=== PATIENT | male | born 1950 | race American Indian/Alaskan Native ===

== ENCOUNTER 2022-03-12 05:27 | Inpatient (IN) | payer MEDICARE ==
[2022-03-12] MEDS ORDERED: MORPHINE 4 MG/1 ML INJ IV ONE (06:12)
[2022-03-12] MEDS ORDERED: ONDANSETRON 4 MG/2 ML INJ IV ONE (06:12)
--- NOTE | 2022-03-12 06:19 | Emergency Department Report ---
ED General Adult HPI - General Stated complaint: LOW BLOOD CELL COUNT Time Seen by Provider: 03/12/22 06:04 - History of Present Illness Initial comments: Patient is a 71-year-old male with history of stage IV cancer (he is unaware of primary source) brought in from [facility] after lab results revealed platelet count of 8. Patient denies any active bleeding however notes painful sacral decubitus ulcer which he thinks may be infected. He denies any fever or chills. States he is on chemotherapy. Last chemo treatment was 4 weeks ago at [place]. - Related Data Allergies Allergy/AdvReac Type Severity Reaction Status Date / Time atorvastatin [From Lipitor] Allergy Unknown Verified 03/12/22 06:46 ED Review of Systems ROS: Stated complaint: LOW BLOOD CELL COUNT Other details as noted in HPI Constitutional: denies: chills, fever Respiratory: denies: cough, shortness of breath, wheezing Cardiovascular: denies: chest pain, palpitations Gastrointestinal: denies: abdominal pain, nausea, diarrhea Genitourinary: denies: urgency, dysuria Musculoskeletal: denies: back pain, joint swelling, arthralgia Skin: lesions Neurological: denies: headache, weakness, paresthesias Psychiatric: denies: anxiety, depression ED Physical Exam - General General appearance: alert, in no apparent distress - Head Head exam: Present: atraumatic, normocephalic - Respiratory Respiratory exam: Present: normal lung sounds bilaterally. Absent: respiratory distress - Cardiovascular Cardiovascular Exam: Present: normal rhythm, tachycardia, normal heart sounds - GI/Abdominal GI/Abdominal exam: Present: soft. Absent: distended, tenderness - Rectal Rectal exam: Present: other (Caked stool in diaper. There is a quarter sized stage I decubitus ulcer to the sacral region). Absent: black stool, bloody stool - Neurological Exam Neurological exam: Present: alert, oriented X3 - Psychiatric Psychiatric exam: Present: normal affect, normal mood - Skin Skin exam: Present: warm, dry, intact, normal color ED Course Vital Signs 03/12/22 03/12/22 03/12/22 06:32 08:57 10:09 Temperature 97 F L 97.6 F Pulse Rate 94 H 88 104 H Respiratory 18 18 21 Rate Blood Pressure 111/51 127/80 Blood Pressure 118/80 [Left] O2 Sat by Pulse 100 100 100 Oximetry 03/12/22 10:24 Temperature Pulse Rate 94 H Respiratory 18 Rate Blood Pressure 115/85 Blood Pressure [Left] O2 Sat by Pulse 100 Oximetry ED Medical Decision Making - Lab Data Result diagrams: 03/12/22 06:46 03/12/22 06:46 - Medical Decision Making Hemoglobin 5.5, platelet count 7. I suspect this is likely related to his chemotherapy. 3 units of packed red cells ordered. Serum potassium 5.6. Patient was given oral Kayexalate along with IV dextrose and insulin. He was also given 2 g of IV calcium gluconate for serum calcium of 7.8. Hemoccult pending. Will admit to hospitalist for further management. Critical care attestation.: If time is entered above; I have spent that time in minutes in the direct care of this critically ill patient, excluding procedure time. ED Disposition Clinical Impression: Anemia associated with chemotherapy, Hyperkalemia, Hypocalcemia Disposition: 09 ADMITTED INPATIENT Is pt being admited?: Yes Condition: Stable
[2022-03-12 07:26] LABS: Mean Corpuscular HGB Conc 33 % (32-34); Mean Corpuscular Volume 92 fl (84-94); Red Blood Count 1.83 M/mm3 (3.65-5.03)
[2022-03-12 07:49] LABS: Alanine Aminotransferase 19 units/L (7-56); Albumin 2.5 g/dL (3.9-5); BUN/Creatinine Ratio 58; Bilirubin,Direct 0.4 mg/dL (0-0.2); Blood Urea Nitrogen 64 mg/dL (9-20); Calcium 7.8 mg/dL (8.4-10.2); Hemolysis Index 3
[2022-03-12 07:54] LABS: Hemoglobin 5.5 gm/dl (11.8-15.2)
[2022-03-12 07:55] LABS: Hematocrit 16.8 % (35.5-45.6); Red Cell Distribution Width 26.8 % (13.2-15.2)
[2022-03-12] MEDS ORDERED: DEXTROSE 50% IN WATER (25GM) 50 ML SYRINGE IV ONE (07:55)
[2022-03-12] MEDS ORDERED: INSULIN REGULAR, HUMAN 100 UNITS/1 ML IV ONE (07:55)
[2022-03-12] MEDS ORDERED: SODIUM POLYSTYRENE 15 GM/60 ML ORAL LIQD PO ONE (07:55)
[2022-03-12 07:56] LABS: Platelet Count 7 K/mm3 (140-440)
[2022-03-12] MEDS ORDERED: SODIUM CHLORIDE 0.9% 500 ML 500 ML IV ONE (08:04)
[2022-03-12] MEDS ORDERED: CALCIUM GLUCONATE 2,000 MG in SODIUM CHLORIDE 0.9% 100 ML IV NR (08:30)
[2022-03-12] MEDS ORDERED: DEXTROSE 50% IN WATER (25GM) 50 ML SYRINGE IV SCH (09:00)
[2022-03-12] MEDS: CALC GLUCONATE 1GM/NS 100 ML 1 GM/100 ML BAG IV SCH (09:09)
[2022-03-12 09:18] LABS: INR 1.21 (0.87-1.13)
[2022-03-12 10:25] LABS: Anisocytosis 1+; Band Neutrophils # (Manual) 0.2 K/mm3; Basophils % (Manual) 0 % (0.0-1.8); Eosinophils % (Manual) 0 % (0.0-4.3); Myelocytes # (Manual) 0.5 K/mm3; Ovalocytes 1+; Total Cells Counted 100
[2022-03-12 10:26] LABS: Hypochromasia 1+; Platelet Estimate Consistent w Auto; Schistocytes Rare
[2022-03-12] MEDS ORDERED: ALBUTEROL 2.5 MG/3 ML NEBU IH PRN (12:22)
[2022-03-12] MEDS ORDERED: oxyCODONE /ACETAMINOPHEN 5-325MG TAB PO PRN (12:22)
[2022-03-12] MEDS ORDERED: ACETAMINOPHEN 325 MG TAB PO PRN ×2 (12:22)
[2022-03-12] MEDS ORDERED: MORPHINE 4 MG/1 ML INJ IV PRN (12:22)
[2022-03-12] MEDS ORDERED: SODIUM CHLORIDE 0.9% 500 ML 500 ML IV SCH (12:26)
--- NOTE | 2022-03-12 12:28 | History and Physical Report ---
History of Present Illness Chief complaint: Low platelets. 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 Patient has diminished cognition and provides minimal history. Patient reports my backside is hurting". Additional history taken from EMS staff, ED staff, as well as nursing home facility staff. As per staff the patient was recently discharged to their facility from [facility] and routine lab work found that the patient had a platelet count of 8. EMS was notified and the patient was simply transported to [facility] for further care and evaluation of the aforementioned symptoms. The patient was seen and evaluated in the emergency department. All lab and imaging studies reviewed. Patient found to have sepsis suspected secondary to urinary tract infection with concomitant infection of sacral decubitus ulcer, thrombocytopenia, malnutrition, debility, and volume depletion. Patient admitted to [facility] and initiated on sepsis protocol. Patient treated with packed red blood cell transfusion as well as platelet transfusion. No additional history obtainable. No prior admission for review. No medication listed at time of admission for reconciliation. Advanced care planning conducted in ED. Past History Past Medical History: cancer, other (See HPI) Past Surgical History: No surgical history, Other (Reviewed) Social history: single. denies: smoking, alcohol abuse Family history: hypertension Medications and Allergies Allergies Allergy/AdvReac Type Severity Reaction Status Date / Time atorvastatin [From Lipitor] Allergy Unknown Verified 03/12/22 06:46 Active Meds: Active Medications Acetaminophen (Acetaminophen 325 Mg Tab) 650 mg PO Q6H PRN PRN Reason: Pain, Mild (1-3) Acetaminophen (Acetaminophen 325 Mg Tab) 650 mg PO Q6H PRN PRN Reason: Pain MILD(1-3)/Fever >100.5/BROOKE Albuterol (Albuterol 2.5 Mg/3 Ml Nebu) 2.5 mg IH Q3HRT PRN PRN Reason: Shortness Of Breath Hydromorphone HCl (Hydromorphone 0.5 Mg/0.5 Ml Inj) 0.25 mg IV Q4H PRN PRN Reason: Pain, Moderate (4-6) CALC GLUCONATE 1GM/NS 100 ML (Calcium Gluonate/Ns 1,000mg/100ml) 1 gm in 100 mls @ 300 mls/hr IV ONCE@0900 RJ Stop: 03/13/22 09:19 Last Admin: 03/12/22 09:09 Dose: 300 mls/hr Ceftriaxone Sodium (Rocephin/Ns 1 Gm/50 Ml) 1 gm in 50 mls @ 100 mls/hr IV Q24H RJ; Protocol Stop: 03/14/22 13:29 Morphine Sulfate (Morphine 4 Mg/1 Ml Inj) 2 mg IV Q8H PRN PRN Reason: Pain , Severe (7-10) Oxycodone/Acetaminophen (Oxycodone /Acetaminophen 5-325mg Tab) 1 tab PO Q6H PRN PRN Reason: Pain, Moderate (4-6) Sodium Chloride (Sodium Chloride 0.9% 10 Ml Flush Syringe) 10 ml IV BID RJ Sodium Chloride (Sodium Chloride 0.9% 10 Ml Flush Syringe) 10 ml IV PRN PRN PRN Reason: LINE FLUSH Sodium Chloride (Sodium Chloride 0.9% 1000 Ml Iv Soln) 1,500 ml 30 ml/kg (1500 ml) IV ONCE ONE Stop: 03/12/22 12:23 Review of Systems ROS unobtainable: due to mental status Exam - Constitutional Vitals: Temp Pulse Resp BP Pulse Ox 98.2 F 75 18 123/79 100 03/12/22 11:56 03/12/22 11:56 03/12/22 11:56 03/12/22 11:56 03/12/22 11:56 General appearance: Present: mild distress, cachectic - EENT Eyes: Present: PERRL ENT: hearing intact, clear oral mucosa - Neck Neck: Present: supple, normal ROM - Respiratory Respiratory effort: normal Respiratory: bilateral: diminished - Cardiovascular Heart Sounds: Present: S1 & S2. Absent: rub, click - Extremities Extremities: pulses symmetrical, No edema Peripheral Pulses: abnormal (Capillary refill greater than 3.5 seconds) - Abdominal General gastrointestinal: Present: soft, non-tender, non-distended, normal bowel sounds Male genitourinary: Present: normal - Integumentary Integumentary: Present: dry, clammy, decreased turgor - Musculoskeletal Musculoskeletal: generalized weakness - Psychiatric Psychiatric: no intact judgment & insight, no memory intact, cooperative - Neurologic Neurologic: CNII-XII intact, no focal deficits, moves all extremities, no gait normal Results - Labs CBC & Chem 7: 03/12/22 06:46 03/12/22 06:46 Labs: Abnormal lab results 03/12/22 03/12/22 03/12/22 Range/Units 06:46 06:46 08:20 WBC 18.0 H (4.5-11.0) K/mm3 RBC 1.83 L (3.65-5.03) M/mm3 Hgb 5.5 L* (11.8-15.2) gm/dl Hct 16.8 L* (35.5-45.6) % RDW 26.8 H (13.2-15.2) % Plt Count 7 L* (140-440) K/mm3 Seg Neuts % (Manual) 85.0 H (40.0-70.0) % Lymphocytes % (Manual) 2.0 L (13.4-35.0) % Nucleated RBC % 8.0 H (0.0-0.9) % Seg Neutrophils # Man 15.3 H (1.8-7.7) K/mm3 Lymphocytes # (Manual) 0.4 L (1.2-5.4) K/mm3 Monocytes # (Manual) 1.3 H (0.0-0.8) K/mm3 PT 17.1 H (12.2-14.9) Sec. INR 1.21 H (0.87-1.13) Potassium 5.6 H (3.6-5.0) mmol/L BUN 64 H (9-20) mg/dL Glucose 127 H (75-100) mg/dL Calcium 7.8 L (8.4-10.2) mg/dL Direct Bilirubin 0.4 H (0-0.2) mg/dL AST 63 H (5-40) units/L Alkaline Phosphatase 311 H (35-129) units/L Total Protein 4.9 L (6.3-8.2) g/dL Albumin 2.5 L (3.9-5) g/dL Crossmatch 03/12/22 Range/Units 08:21 WBC (4.5-11.0) K/mm3 RBC (3.65-5.03) M/mm3 Hgb (11.8-15.2) gm/dl Hct (35.5-45.6) % RDW (13.2-15.2) % Plt Count (140-440) K/mm3 Seg Neuts % (Manual) (40.0-70.0) % Lymphocytes % (Manual) (13.4-35.0) % Nucleated RBC % (0.0-0.9) % Seg Neutrophils # Man (1.8-7.7) K/mm3 Lymphocytes # (Manual) (1.2-5.4) K/mm3 Monocytes # (Manual) (0.0-0.8) K/mm3 PT (12.2-14.9) Sec. INR (0.87-1.13) Potassium (3.6-5.0) mmol/L BUN (9-20) mg/dL Glucose (75-100) mg/dL Calcium (8.4-10.2) mg/dL Direct Bilirubin (0-0.2) mg/dL AST (5-40) units/L Alkaline Phosphatase (35-129) units/L Total Protein (6.3-8.2) g/dL Albumin (3.9-5) g/dL Crossmatch See Detail Assessment and Plan - Patient Problems (1) Sepsis Current Visit: Yes Status: Acute Plan to address problem: Sepsis protocol: Chest x-ray, urinalysis, IV fluid resuscitation therapy, IV antibiotic therapy, blood culture, serial lactic acid level, maintain mean arterial pressure greater than equal to 65, monitor fluid balance, (2) Anemia associated with chemotherapy Current Visit: Yes Status: Acute Plan to address problem: Blood cell transfusion, CBC, repeat CBC in AM. Outpatient oncology follow-up. (3) Thrombocytopenia Current Visit: Yes Status: Acute Plan to address problem: Platelet transfusion, fall precautions, repeat CBC in AM. (4) Urinary tract infection Current Visit: Yes Status: Acute Qualifiers: Encounter type: initial encounter Plan to address problem: CBC, urinalysis, IV antibiotic therapy, repeat CBC in a.m. (5) Sacral decubitus ulcer Current Visit: Yes Status: Acute Plan to address problem: Wound care consulted, continue medical management. (6) Malnutrition Current Visit: Yes Status: Acute Qualifiers: Protein-calorie malnutrition severity: severe Plan to address problem: Increase protein intake, dietary supplementation. (7) Debility Current Visit: Yes Status: Acute (8) Vascular dementia Current Visit: Yes Status: Acute Qualifiers: Dementia behavioral disturbance: without behavioral disturbance Qualified Code(s): F01.50 - Vascular dementia without behavioral disturbance Plan to address problem: Verbal prompting, verbal redirection, benzodiazepine therapy as clinically indicated. (9) Cerebral atherosclerosis Current Visit: Yes Status: Acute Plan to address problem: Risk factor reduction, hold antiplatelet therapy at this time due to thrombocytopenia. (10) DVT prophylaxis Current Visit: Yes Status: Acute Plan to address problem: SCDs bilateral lower extremities while in bed (11) Advance care planning Current Visit: Yes Status: Acute Plan to address problem: Disease education conducted, care plan discussed, diagnosis discussed, prognosis discussed, nursing home facility staff acknowledged understanding agree with care plan, +30 minutes. (12) Preventative health care Current Visit: Yes Status: Acute Plan to address problem: Safety precautions discussed, patient to follow-up with primary care physician as well as oncology for age and risk factor appropriate and diagnosis appropriate screening test and surveillance test. +30 minutes.
[2022-03-12] MEDS ORDERED: SODIUM CHLORIDE 0.9% 1000 ML IV SOLN IV ONE (12:30)
[2022-03-12] MEDS: cefTRIAXone/NS 1 GM/50 ML 1 GM/50 ML BAG IV SCH (12:55)
--- NOTE | 2022-03-12 15:36 | XRay Report ---
CHEST 1 VIEW INDICATION: fever. COMPARISON: None FINDINGS: SUPPORT DEVICES: Right-sided Port-A-Cath with tip in the mid right atrium. HEART: Within normal limits. LUNGS/PLEURA: Large right-sided pleural effusion with underlying patchy airspace disease/atelectasis. Minimal left basilar streaky airspace disease/atelectasis is also present. ADDITIONAL FINDINGS: None. IMPRESSION: 1. Lung findings as above. Signer Name: Rocky Valentin MD Signed: 03/12/2022 3:31 PM Workstation Name: [id number]
[2022-03-13 00:52] LABS: Hematocrit 36.3 % (35.5-45.6); Hemoglobin 12.1 gm/dl (11.8-15.2); Mean Corpuscular HGB Conc 33 % (32-34); Mean Corpuscular Volume 91 fl (84-94); Red Cell Distribution Width 18.4 % (13.2-15.2)
[2022-03-13 00:59] LABS: Platelet Count 31 K/mm3 (140-440)
[2022-03-13 08:29] LABS: Hematocrit 34.6 % (35.5-45.6); Mean Corpuscular HGB Conc 35 % (32-34); Mean Corpuscular Volume 89 fl (84-94); Red Blood Count 3.87 M/mm3 (3.65-5.03); Red Cell Distribution Width 18.8 % (13.2-15.2)
[2022-03-13 08:42] LABS: Platelet Count 17 K/mm3 (140-440)
[2022-03-13 08:45] LABS: BUN/Creatinine Ratio 72; Blood Urea Nitrogen 72 mg/dL (9-20); Calcium 7.4 mg/dL (8.4-10.2); Hemolysis Index 1
[2022-03-13 09:52] LABS: Band Neutrophils # (Manual) 1.8 K/mm3; Basophils % (Manual) 0 % (0.0-1.8); Eosinophils % (Manual) 0 % (0.0-4.3); Total Cells Counted 100
[2022-03-13 09:53] LABS: Target Cells 1+
[2022-03-13] MEDS: CALC GLUCONATE 1GM/NS 100 ML 1 GM/100 ML BAG IV SCH (09:53)
[2022-03-13 09:54] LABS: Anisocytosis Few; Burr Cells Few; Platelet Estimate Consistent w Auto; Spherocytes Few
[2022-03-13] MEDS: cefTRIAXone/NS 1 GM/50 ML 1 GM/50 ML BAG IV SCH (12:18)
--- NOTE | 2022-03-13 12:48 | Progress Note ---
<WING PURVIS - Last Filed: 03/13/22 18:13> Assessment and Plan Assessment and plan: This is a 71-year-old male with known past medical history of stage 4 Lung CA s/p Chemo, vascular dementia, cerebral atherosclerosis, malnutrition, debility, sacral decubitus ulcer admitted for sepsis, anemia, and severe thrombocytopenia. Hospital Course to Date: 03/13: S/p 3units of PRBCs and 2units of plt. Platelets counts are still low this am, last unit of plt pending. Patient remains mentally intact, stable on 2L NC. No s/s of any active bleeding, stool occult negative. Hematology consulted for further recs. Patient is also hypotensive this am. Remains afebrile, however with worsen leukocytosis, UA and blood cultures pending. BP improved post IVF bolus and continuous IVF ordered. Will check a procal, continue current empiric IV Abx for now. Consider ID consult if leukocytosis worsen or if patient is febrile. Hypoglycemia also noted from this am labs, treated per hypoglycemic protocol. Encourage PO intake, BG check ACHS, sole painter/nutrition consulted. PT/OT also ordered. Records requested from [place]. Assessment and Plan #Sepsis #Probably UTI #Sacral Decubitus Ulcer(POA) - Resides at a nursing and per patient with multiple hospitalization since pt, 2020 - With worsen leukocytosis, now hypotensive with worsen lactic acidosis. Remains afebrile - UA, blood cultures, MRSA pending - Patient also presented with stage 2 sacral wound. Wound appears clean, no indication for any infection - Procal ordered - Continue current empiric IV Abx - Continue IVF hydration - Trend Lactic acid - F/U on cultures - Daily CBC monitor - Consider ID consult if febrile or/and if leukocytosis persists - Frquent repositioning and wound care per nursing staffs - Wound care also consulted #Normocytic Anemia #Thrombocytopenia - Presented with low H&H and low platelets - Probably due chemotherapy vs sepsis - Per patient last chemo treatment was a month ago at [place] and the dosage was too strong for him at the time. - s/p 3units of PRBCs and 2units of platelets - No s/s of any active bleeding - Stool occult negative - Plt still low this am, additional 1unit of plt ordered - Continue sepsis w/up and IV abx - Hematology consulted for further rec - Transfuse for Hgb less than 7 and plt less than 20 - Records requested from [place] #Hypotension - probably related to sepsis - BP improved post IVF bolus - Continue sepsis w/up and current empiric IV Abx - Continue rehydration with cont. IVF - Continue blood pressure monitor per protocol - Maintain MAP above 65 #Hypoglycemia - Low BG noted from this am labs - Probably due to poor PO intake - BG treated per [id number] protocol - Check BG ACHS - Avoid hypoglycemia - Continue hypoglycemic protocol #Stage 4 Lung Cancer s/p Chemo - Per patient last chemo treatment was a month ago at [place] and the dosage was too strong for him at the time. - Currently stable on 2L NC - Continue O2 supplementation wean as tolerated - Continue SPO2 monitoring for SPO2 goal above 92% - Follow up outpatient with Oncology for further management #Moderate Protein-Calorie Malnutrition - Encourage PO intake - Increase protein intake, dietary supplementation. - Tongue And Groove Machine Setter/Nutrition consulted #Vascular Dementia #Debility - Mentation improved, fully AAO today - Verbal prompting, verbal redirection - Avoid benzodiazepine to reduce the possibility of delirium - PRN Analgesia for pain control - Maintenance of sleep-wake cycle - PT/OT consulted #GI/DVT Prophylaxis - PPI- Pepcid - SCDs bilateral lower extremities while in bed #Advance Care Planning - Disease education data, care plan, diagnoses, and prognosis were discussed with patient at the bedside. Patient is a FULL code. Patient acknowledged understanding and agreed with current care plan. The high probability of a clinically significant, sudden or life threatening deterioration of the [multiple] system(s) required my full and direct attention, intervention and personal management. The aggregate critical care time was [60] minutes. This time is in addition to time spent performing reported procedures but includes the following: [x] Data Review and interpretation [x] Patient assessment and monitoring of vital signs [x] Documentation [x] Medication orders and management Disposition Plan: IMCU Total Time Spent with Patient (Minutes): 60 History Interval history: Patient seen and examined at the bedside. Fully AAO, on 2L NC, c/o generalized weakness but no pain nor any discomfort. SR on the monitor, afebrile, but hypotensive this am. No s/s of any active bleeding at this time. [place] overnight Hospitalist Physical - Constitutional Vitals: Temp Pulse Resp BP Pulse Ox 98.3 F 98 H 20 87/60 92 03/13/22 11:42 08/05/22 11:42 03/13/22 11:42 03/13/22 11:42 03/13/22 11:42 General appearance: Present: no acute distress, cachectic - EENT Eyes: Present: PERRL, EOM intact ENT: hearing intact - Neck Neck: Present: normal ROM - Respiratory Respiratory effort: normal Respiratory: bilateral: diminished - Cardiovascular Rhythm: regular Heart Sounds: Present: S1 & S2 - Extremities Extremities: no ischemia, pulses intact, pulses symmetrical Peripheral Pulses: within normal limits - Abdominal General gastrointestinal: soft, non-distended, normal bowel sounds - Integumentary Integumentary: Present: warm, dry - Psychiatric Psychiatric: appropriate mood/affect, cooperative - Neurologic Neurologic: CNII-XII intact, moves all extremities, other (Generalized weakness) - Allied Health Allied health notes reviewed: nursing, case management Results - Labs CBC & Chem 7: 03/13/22 08:14 03/13/22 08:14 Labs: Laboratory Last Values WBC 25.1 K/mm3 (4.5-11.0) H 03/13/22 08:14 RBC 3.87 M/mm3 (3.65-5.03) 03/13/22 08:14 Hgb 12.0 gm/dl (11.8-15.2) 03/13/22 08:14 Hct 34.6 % (35.5-45.6) L 03/13/22 08:14 MCV 89 fl (84-94) 03/13/22 08:14 MCH 31 pg (28-32) 03/13/22 08:14 MCHC 35 % (32-34) H 03/13/22 08:14 RDW 18.8 % (13.2-15.2) H 03/13/22 08:14 Plt Count 17 K/mm3 (140-440) L* 03/13/22 08:14 Add Manual Diff Complete 03/13/22 08:14 Total Counted 100 03/13/22 08:14 Seg Neuts % (Manual) 84.0 % (40.0-70.0) H 03/13/22 08:14 Band Neutrophils % 7.0 % 03/13/22 08:14 Lymphocytes % (Manual) 0 % (13.4-35.0) L 03/13/22 08:14 Reactive Lymphs % (Man) 0 % 03/13/22 08:14 Monocytes % (Manual) 6.0 % (0.0-7.3) 03/13/22 08:14 Eosinophils % (Manual) 0 % (0.0-4.3) 03/13/22 08:14 Basophils % (Manual) 0 % (0.0-1.8) 03/13/22 08:14 Metamyelocytes % 3.0 % 03/13/22 08:14 Myelocytes % 0 % 03/13/22 08:14 Promyelocytes % 0 % 03/13/22 08:14 Blast Cells % 0 % 03/13/22 08:14 Nucleated RBC % 8.0 % (0.0-0.9) H 03/13/22 08:14 Seg Neutrophils # Man 21.1 K/mm3 (1.8-7.7) H 03/13/22 08:14 Band Neutrophils # 1.8 K/mm3 03/13/22 08:14 Lymphocytes # (Manual) 0.0 K/mm3 (1.2-5.4) L 03/13/22 08:14 Abs React Lymphs (Man) 0.0 K/mm3 03/13/22 08:14 Monocytes # (Manual) 1.5 K/mm3 (0.0-0.8) H 03/13/22 08:14 Eosinophils # (Manual) 0.0 K/mm3 (0.0-0.4) 03/13/22 08:14 Basophils # (Manual) 0.0 K/mm3 (0.0-0.1) 03/13/22 08:14 Metamyelocytes # 0.8 K/mm3 03/13/22 08:14 Myelocytes # 0.0 K/mm3 03/13/22 08:14 Promyelocytes # 0.0 K/mm3 03/13/22 08:14 Blast Cells # 0.0 K/mm3 03/13/22 08:14 WBC Morphology Not Reportable 03/13/22 08:14 Hypersegmented Neuts Not Reportable 03/13/22 08:14 Hyposegmented Neuts Not Reportable 03/13/22 08:14 Hypogranular Neuts Not Reportable 03/13/22 08:14 Smudge Cells Not Reportable 03/13/22 08:14 Toxic Granulation Not Reportable 03/13/22 08:14 Toxic Vacuolation Not Reportable 03/13/22 08:14 Dohle Bodies Not Reportable 03/13/22 08:14 Pelger-Huet Anomaly Not Reportable 03/13/22 08:14 Blu Rods Not Reportable 03/13/22 08:14 Platelet Estimate Consistent w auto 03/13/22 08:14 Clumped Platelets Not Reportable 03/13/22 08:14 Plt Clumps, EDTA Not Reportable 03/13/22 08:14 Large Platelets Not Reportable 03/13/22 08:14 Giant Platelets Not Reportable 03/13/22 08:14 Platelet Satelliting Not Reportable 03/13/22 08:14 Plt Morphology Comment Not Reportable 03/13/22 08:14 RBC Morphology Not Reportable 03/13/22 08:14 Dimorphic RBCs Not Reportable 03/13/22 08:14 Polychromasia Few 03/13/22 08:14 Hypochromasia Not Reportable 03/13/22 08:14 Poikilocytosis Not Reportable 03/13/22 08:14 Anisocytosis Few 03/13/22 08:14 Microcytosis Not Reportable 03/13/22 08:14 Macrocytosis Not Reportable 03/13/22 08:14 Spherocytes Few 03/13/22 08:14 Pappenheimer Bodies Not Reportable 03/13/22 08:14 Sickle Cells Not Reportable 03/13/22 08:14 Target Cells 1+ 03/13/22 08:14 Tear Drop Cells Not Reportable 03/13/22 08:14 Ovalocytes Not Reportable 03/13/22 08:14 Helmet Cells Not Reportable 03/13/22 08:14 Holland-Pratt Bodies Not Reportable 03/13/22 08:14 [place] Rings Not Reportable 03/13/22 08:14 [place] Cells Few 03/13/22 08:14 Bite Cells Not Reportable 03/13/22 08:14 Crenated Cell Not Reportable 03/13/22 08:14 Elliptocytes 1+ 03/13/22 08:14 Acanthocytes (Spur) Not Reportable 03/13/22 08:14 Rouleaux Not Reportable 03/13/22 08:14 Hemoglobin C Crystals Not Reportable 03/13/22 08:14 Schistocytes Not Reportable 03/13/22 08:14 Malaria parasites Not Reportable 03/13/22 08:14 River Bodies Not Reportable 03/13/22 08:14 Hem Pathologist Commnt No 03/13/22 08:14 PT 17.1 Sec. (12.2-14.9) H 03/12/22 08:20 INR 1.21 (0.87-1.13) H 03/12/22 08:20 APTT 31.0 Sec. (24.2-36.6) 03/12/22 08:20 Sodium 139 mmol/L (137-145) 03/13/22 08:14 Potassium 4.7 mmol/L (3.6-5.0) 03/13/22 08:14 Chloride 106.1 mmol/L (98-107) 03/13/22 08:14 Carbon Dioxide 20 mmol/L (22-30) L 03/13/22 08:14 Anion Gap 18 mmol/L 03/13/22 08:14 BUN 72 mg/dL (9-20) H 03/13/22 08:14 Creatinine 1.0 mg/dL (0.8-1.3) 03/13/22 08:14 Estimated GFR > 60 ml/min 03/13/22 08:14 BUN/Creatinine Ratio 72 % 03/13/22 08:14 Glucose 61 mg/dL (75-100) L 03/13/22 08:14 Lactic Acid 2.10 mmol/L (0.7-2.0) H* 03/13/22 08:14 Calcium 7.4 mg/dL (8.4-10.2) L 03/13/22 08:14 Total Bilirubin 1.00 mg/dL (0.1-1.2) 03/12/22 06:46 Direct Bilirubin 0.4 mg/dL (0-0.2) H 03/12/22 06:46 Indirect Bilirubin 0.6 mg/dL 03/12/22 06:46 AST 63 units/L (5-40) H 03/12/22 06:46 ALT 19 units/L (7-56) 03/12/22 06:46 Alkaline Phosphatase 311 units/L (35-129) H 03/12/22 06:46 Total Protein 4.9 g/dL (6.3-8.2) L 03/12/22 06:46 Albumin 2.5 g/dL (3.9-5) L 03/12/22 06:46 Albumin/Globulin Ratio 1.0 % 03/12/22 06:46 Blood Type O POSITIVE 03/12/22 08:21 Antibody Screen Negative 03/12/22 08:21 Crossmatch See Detail 03/12/22 08:21 Ann/IV: Voiding Method Incontinent Active Medications - Current Medications Current Medications: Generic Name Dose Route Start Last Admin Trade Name Freq PRN Reason Stop Dose Admin Acetaminophen 650 mg 03/12/22 12:22 Acetaminophen 325 Mg Tab PO Q6H PRN Pain, Mild (1-3) Albuterol 2.5 mg 03/12/22 12:22 Albuterol 2.5 Mg/3 Ml Nebu IH Q3HRT PRN Shortness Of Breath Hydromorphone HCl 0.25 mg 03/12/22 12:22 Hydromorphone 0.5 Mg/0.5 Ml Inj IV Q4H PRN Pain, Moderate (4-6) Ceftriaxone Sodium 1 gm in 50 mls @ 100 mls/hr 03/12/22 13:00 03/13/22 12:18 Rocephin/Ns 1 Gm/50 Ml IV 03/14/22 13:29 100 mls/hr Q24H RJ Administration Protocol Sodium Chloride 500 mls @ 0 mls/hr 03/12/22 12:26 Nacl 0.9% 500 Ml IV ONCE RJ As Directed Morphine Sulfate 2 mg 03/12/22 12:22 Morphine 4 Mg/1 Ml Inj IV Q8H PRN Pain , Severe (7-10) Oxycodone/Acetaminophen 1 tab 03/12/22 12:22 Oxycodone /Acetaminophen 5-325mg Tab PO Q6H PRN Pain, Moderate (4-6) Sodium Chloride 10 ml 03/12/22 22:00 03/13/22 09:53 Sodium Chloride 0.9% 10 Ml Flush Syringe IV 10 ml BID RJ Administration Sodium Chloride 10 ml 03/12/22 12:22 Sodium Chloride 0.9% 10 Ml Flush Syringe IV PRN PRN LINE FLUSH Nutrition/Malnutrition Assess - Dietary Evaluation Nutrition/Malnutrition Findings: Nutrition Notes Start: 03/13/22 10:05 Freq: Status: Active Protocol: Document 03/13/22 10:05 EULA (Rec: 03/13/22 10:17 [facility] [id number]) Nutrition Notes Need for Assessment generated from: development and housing director,MST Initial or Follow up Assessment Current Diagnosis Decubitus(Pressure Ulcer), Sepsis Other Pertinent Diagnosis UTI, Infected sacral ulcer, Debility, Anemia Current Diet Regular Labs/Tests BUN 72 BG 61 Pertinent Medications Reviewed Height 5 ft 10 in Weight 49.9 kg [place] Body Weight (kg) 75.45 BMI 15.7 Intake Prior to Admission Poor Weight Status Underweight Subjective/Other Information Pt screened for malnutrition risk, skin risk (Jose score: 13), and low BMI. Pt from a [place]. PMHx includes stage 4 malignant neoplasm s/p chemo, malnutrition, vascular dementia and cerebral atherosclerosis. 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 No Is Patient Ambulatory and/or Out of Bed No REE-([facility]-confined to bed) 1524.420 Kcal/Kg value to use for calculation 40 Approximate Energy Requirements Using 1996 kcal/Kg Calculation Used for Recommendations Kcal/kg Additional Notes Pro needs 1.25-1.5g/k-75g /day Fluid needs 1ml/kcal Nutrition Intervention Change Diet Order: Change diet to [facility] soft Add Supplement/Snack (indicate name/kcal Ensure Enlive TID (chocolate) /protein ) Provides kCal: 1,050 Provides Protein (gm) 60 Goal #1 PO intake of meals plus ONS to meet 100% energy and pro needs Goal #2 Wound healing Goal #3 Wt maintenance and/or gain Anticipated Discharge Needs: Continue ONS 2-3 times daily for wt maintenance; MVI with minerals once daily, 500mg Vit C BID for wound healing Follow-Up By: 03/16/22 Additional Comments F/U: intakes (meals/ONS) <JENNIFER PICKENS - Last Filed: 03/14/22 07:28> Assessment and Plan Assessment and plan: I saw and evaluated the patient. I agree with the findings and the plan of care as documented in the Nurse Practitioner's~note, with the following corrections and additions. Hospitalist Physical - Constitutional Vitals: Temp Pulse Resp BP Pulse Ox 96.2 F L 86 16 97/62 92 03/14/22 05:17 03/14/22 06:01 03/14/22 06:01 03/14/22 06:01 03/14/22 06:01 Results - Labs CBC & Chem 7: 03/14/22 04:54 03/14/22 04:54 Labs: Laboratory Last Values WBC 29.7 K/mm3 (4.5-11.0) H 03/14/22 04:54 RBC 3.65 M/mm3 (3.65-5.03) 03/14/22 04:54 Hgb 11.1 gm/dl (11.8-15.2) L 03/14/22 04:54 Hct 33.5 % (35.5-45.6) L 03/14/22 04:54 MCV 92 fl (84-94) 03/14/22 04:54 MCH 30 pg (28-32) 03/14/22 04:54 MCHC 33 % (32-34) 03/14/22 04:54 RDW 19.8 % (13.2-15.2) H 03/14/22 04:54 Plt Count 18 K/mm3 (140-440) L* 03/14/22 04:54 Add Manual Diff Complete 03/13/22 08:14 Total Counted 100 03/13/22 08:14 Seg Neuts % (Manual) 84.0 % (40.0-70.0) H 03/13/22 08:14 Band Neutrophils % 7.0 % 03/13/22 08:14 Lymphocytes % (Manual) 0 % (13.4-35.0) L 03/13/22 08:14 Reactive Lymphs % (Man) 0 % 03/13/22 08:14 Monocytes % (Manual) 6.0 % (0.0-7.3) 03/13/22 08:14 Eosinophils % (Manual) 0 % (0.0-4.3) 03/13/22 08:14 Basophils % (Manual) 0 % (0.0-1.8) 03/13/22 08:14 Metamyelocytes % 3.0 % 03/13/22 08:14 Myelocytes % 0 % 03/13/22 08:14 Promyelocytes % 0 % 03/13/22 08:14 Blast Cells % 0 % 03/13/22 08:14 Nucleated RBC % 8.0 % (0.0-0.9) H 03/13/22 08:14 Seg Neutrophils # Man 21.1 K/mm3 (1.8-7.7) H 03/13/22 08:14 Band Neutrophils # 1.8 K/mm3 03/13/22 08:14 Lymphocytes # (Manual) 0.0 K/mm3 (1.2-5.4) L 03/13/22 08:14 Abs React Lymphs (Man) 0.0 K/mm3 03/13/22 08:14 Monocytes # (Manual) 1.5 K/mm3 (0.0-0.8) H 03/13/22 08:14 Eosinophils # (Manual) 0.0 K/mm3 (0.0-0.4) 03/13/22 08:14 Basophils # (Manual) 0.0 K/mm3 (0.0-0.1) 03/13/22 08:14 Metamyelocytes # 0.8 K/mm3 03/13/22 08:14 Myelocytes # 0.0 K/mm3 03/13/22 08:14 Promyelocytes # 0.0 K/mm3 03/13/22 08:14 Blast Cells # 0.0 K/mm3 03/13/22 08:14 WBC Morphology Not Reportable 03/13/22 08:14 Hypersegmented Neuts Not Reportable 03/13/22 08:14 Hyposegmented Neuts Not Reportable 03/13/22 08:14 Hypogranular Neuts Not Reportable 03/13/22 08:14 Smudge Cells Not Reportable 03/13/22 08:14 Toxic Granulation Not Reportable 03/13/22 08:14 Toxic Vacuolation Not Reportable 03/13/22 08:14 Dohle Bodies Not Reportable 03/13/22 08:14 Pelger-Huet Anomaly Not Reportable 03/13/22 08:14 Blu Rods Not Reportable 03/13/22 08:14 Platelet Estimate Consistent w auto 03/13/22 08:14 Clumped Platelets Not Reportable 03/13/22 08:14 Plt Clumps, EDTA Not Reportable 03/13/22 08:14 Large Platelets Not Reportable 03/13/22 08:14 Giant Platelets Not Reportable 03/13/22 08:14 Platelet Satelliting Not Reportable 03/13/22 08:14 Plt Morphology Comment Not Reportable 03/13/22 08:14 RBC Morphology Not Reportable 03/13/22 08:14 Dimorphic RBCs Not Reportable 03/13/22 08:14 Polychromasia Few 03/13/22 08:14 Hypochromasia Not Reportable 03/13/22 08:14 Poikilocytosis Not Reportable 03/13/22 08:14 Anisocytosis Few 03/13/22 08:14 Microcytosis Not Reportable 03/13/22 08:14 Macrocytosis Not Reportable 03/13/22 08:14 Spherocytes Few 03/13/22 08:14 Pappenheimer Bodies Not Reportable 03/13/22 08:14 Sickle Cells Not Reportable 03/13/22 08:14 Target Cells 1+ 03/13/22 08:14 Tear Drop Cells Not Reportable 03/13/22 08:14 Ovalocytes Not Reportable 03/13/22 08:14 Helmet Cells Not Reportable 03/13/22 08:14 Holland-Pratt Bodies Not Reportable 03/13/22 08:14 [place] Rings Not Reportable 03/13/22 08:14 [place] Cells Few 03/13/22 08:14 Bite Cells Not Reportable 03/13/22 08:14 Crenated Cell Not Reportable 03/13/22 08:14 Elliptocytes 1+ 03/13/22 08:14 Acanthocytes (Spur) Not Reportable 03/13/22 08:14 Rouleaux Not Reportable 03/13/22 08:14 Hemoglobin C Crystals Not Reportable 03/13/22 08:14 Schistocytes Not Reportable 03/13/22 08:14 Malaria parasites Not Reportable 03/13/22 08:14 River Bodies Not Reportable 03/13/22 08:14 Hem Pathologist Commnt No 03/13/22 08:14 PT 18.2 Sec. (12.2-14.9) H 03/13/22 20:48 INR 1.31 (0.87-1.13) H 03/13/22 20:48 APTT 31.0 Sec. (24.2-36.6) 03/12/22 08:20 Fibrinogen 283 mg/dl (211-480) 03/13/22 20:48 Sodium 138 mmol/L (137-145) 03/14/22 04:54 Potassium 5.2 mmol/L (3.6-5.0) H 03/14/22 04:54 Chloride 108.7 mmol/L (98-107) H 03/14/22 04:54 Carbon Dioxide 17 mmol/L (22-30) L 03/14/22 04:54 Anion Gap 18 mmol/L 03/14/22 04:54 BUN 70 mg/dL (9-20) H 03/14/22 04:54 Creatinine 0.8 mg/dL (0.8-1.3) 03/14/22 04:54 Estimated GFR > 60 ml/min 03/14/22 04:54 BUN/Creatinine Ratio 88 % 03/14/22 04:54 Glucose 177 mg/dL (75-100) H 03/14/22 04:54 POC Glucose 121 mg/dL (70-105) H 03/14/22 00:14 Lactic Acid 3.70 mmol/L (0.7-2.0) H* 03/14/22 04:54 Calcium 7.4 mg/dL (8.4-10.2) L 03/14/22 04:54 Total Bilirubin 0.90 mg/dL (0.1-1.2) 03/14/22 04:54 Direct Bilirubin 0.4 mg/dL (0-0.2) H 03/12/22 06:46 Indirect Bilirubin 0.6 mg/dL 03/12/22 06:46 AST 77 units/L (5-40) H 03/14/22 04:54 ALT 23 units/L (7-56) 03/14/22 04:54 Alkaline Phosphatase 326 units/L (35-129) H 03/14/22 04:54 Total Protein 4.8 g/dL (6.3-8.2) L 03/14/22 04:54 Albumin 2.3 g/dL (3.9-5) L 03/14/22 04:54 Albumin/Globulin Ratio 0.9 % 03/14/22 04:54 Procalcitonin 4.78 ng/mL (<0.15) 03/13/22 12:08 Urine Color Yellow (Yellow) 03/12/22 18:30 Urine Turbidity Clear (Clear) 03/12/22 18:30 Urine pH 5.0 (5.0-7.0) 03/12/22 18:30 Ur Specific [place] 1.035 (1.003-1.030) H 03/12/22 18:30 Urine Protein 30 mg/dl mg/dL (Negative) 03/12/22 18:30 Urine Glucose (UA) Negative mg/dL (Negative) 03/12/22 18:30 Urine Ketones Negative mg/dL (Negative) 03/12/22 18:30 Urine Blood Negative (Negative) 03/12/22 18:30 Urine Nitrite Negative (Negative) 03/12/22 18:30 Urine Bilirubin Negative (Negative) 03/12/22 18:30 Urine Urobilinogen 0.2 mg/dL (<2.0) 03/12/22 18:30 Ur Leukocyte Esterase Negative (Negative) 03/12/22 18:30 Urine WBC (Auto) 6.0 /HPF (0.0-6.0) 03/12/22 18:30 Urine RBC (Auto) 3.0 /HPF (0.0-6.0) 03/12/22 18:30 U Epithel Cells (Auto) < 1.0 /HPF (0-13.0) 03/12/22 18:30 Urine Mucus Few /HPF 03/12/22 18:30 Urine Sperm 1+ /HPF (RECONCILIATION CLERK) 03/12/22 18:30 Nasal Screen MRSA (PCR) Negative (Negative) 03/12/22 17:56 Blood Type O POSITIVE 03/12/22 08:21 Antibody Screen Negative 03/12/22 08:21 Crossmatch See Detail 03/12/22 08:21 Microbiology: Microbiology 03/13/22 Unknown Stool Stool Occult Blood (RANI) - Final Ann/IV: Voiding Method Condom Catheter Active Medications - Current Medications Current Medications: Generic Name Dose Route Start Last Admin Trade Name Freq PRN Reason Stop Dose Admin Acetaminophen 650 mg 03/12/22 12:22 Acetaminophen 325 Mg Tab PO Q6H PRN Pain, Mild (1-3) Albuterol 2.5 mg 03/12/22 12:22 Albuterol 2.5 Mg/3 Ml Nebu IH Q3HRT PRN Shortness Of Breath Dextrose 50 ml 03/13/22 13:22 03/13/22 13:25 Dextrose 50% In Water (25gm) 50 Ml Syringe IV 50 ml Q30MIN PRN Administration Hypoglycemia Protocol Famotidine 20 mg 03/14/22 10:00 Famotidine 20 Mg Tab PO QDAY RJ Hydromorphone HCl 0.25 mg 03/12/22 12:22 Hydromorphone 0.5 Mg/0.5 Ml Inj IV Q4H PRN Pain, Moderate (4-6) Ceftriaxone Sodium 1 gm in 50 mls @ 100 mls/hr 03/12/22 13:00 03/13/22 12:18 Rocephin/Ns 1 Gm/50 Ml IV 03/14/22 13:29 100 mls/hr Q24H RJ Administration Protocol Sodium Chloride 500 mls @ 0 mls/hr 03/12/22 12:26 Nacl 0.9% 500 Ml IV ONCE RJ As Directed Morphine Sulfate 2 mg 03/12/22 12:22 03/14/22 03:43 Morphine 4 Mg/1 Ml Inj IV 2 mg Q8H PRN Administration Pain , Severe (7-10) Oxycodone/Acetaminophen 1 tab 03/12/22 12:22 Oxycodone /Acetaminophen 5-325mg Tab PO Q6H PRN Pain, Moderate (4-6) Sodium Chloride 10 ml 03/12/22 22:00 03/13/22 22:17 Sodium Chloride 0.9% 10 Ml Flush Syringe IV 10 ml BID RJ Administration Sodium Chloride 10 ml 03/12/22 12:22 Sodium Chloride 0.9% 10 Ml Flush Syringe IV PRN PRN LINE FLUSH Nutrition/Malnutrition Assess - Dietary Evaluation Nutrition/Malnutrition Findings: Nutrition Notes Start: 03/13/22 10:05 Freq: Status: Active Protocol: Document 03/13/22 10:05 EULA (Rec: 03/13/22 10:17 EULA [id number]) Nutrition Notes Need for Assessment generated from: MD Order,development and housing director,MST Initial or Follow up Assessment Current Diagnosis Decubitus(Pressure Ulcer), Sepsis Other Pertinent Diagnosis UTI, Infected sacral ulcer, Debility, Anemia Current Diet Regular Labs/Tests BUN 72 BG 61 Pertinent Medications Reviewed Height 5 ft 10 in Weight 49.9 kg [place] Body Weight (kg) 75.45 BMI 15.7 Intake Prior to Admission Poor Weight Status Underweight Subjective/Other Information RD consulted for poor oral intake; pt also screened for malnutrition risk, skin risk ( Jose score: 13), and low BMI . Pt from a [facility]. PMHx includes stage 4 malignant neoplasm s/p chemo, malnutrition, vascular dementia and cerebral atherosclerosis. 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 No Is Patient Ambulatory and/or Out of Bed No REE-([facility]-confined to bed) 1524.420 Kcal/Kg value to use for calculation 40 Approximate Energy Requirements Using 1996 kcal/Kg Calculation Used for Recommendations Kcal/kg Additional Notes Pro needs 1.25-1.5g/k-75g /day Fluid needs 1ml/kcal Nutrition Intervention Change Diet Order: Change diet to [facility] soft Add Supplement/Snack (indicate name/kcal Ensure Enlive TID (chocolate) /protein ) Provides kCal: 1,050 Provides Protein (gm) 60 Goal #1 PO intake of meals plus ONS to meet 100% energy and pro needs Goal #2 Wound healing Goal #3 Wt maintenance and/or gain Anticipated Discharge Needs: Continue ONS 2-3 times daily for wt maintenance; MVI with minerals once daily, 500mg Vit C BID for wound healing Follow-Up By: 03/16/22 Additional Comments F/U: intakes (meals/ONS)
[2022-03-13] MEDS ORDERED: SODIUM CHLORIDE 0.9% 500 ML 500 ML IV ONE (13:08)
[2022-03-13] MEDS ORDERED: SODIUM CHLORIDE 0.9% 1000 ML 1,000 ML IV SCH (13:15)
[2022-03-13] MEDS: DEXTROSE 50% IN WATER (25GM) 50 ML SYRINGE IV PRN (13:25)
--- NOTE | 2022-03-13 13:48 | Hem/Onc Consultation ---
History of Present Illness - Reason for Consult Consult date: 03/13/22 Thrombocytopenia - History of Present Illness Heme Consult Note Seen via amplify CPT 32048 Dx Thrombocytopenia This is a 71 yo AA male who presented to [facility] ED from [facility], [facility], for evaluation of painful decubitis ulcer. Past medical history of stage 4 lung cancer s/p chemotherapy, malnutrition, debility, sacral decubitus ulcer present on admission, vascular dementia, cerebral atherosclerosis. Patient has diminished cognition and provides minimal history. Reports of recent discharge from [facility] and routine lab work found that the patient had a platelet count of 8. Patient found to have sepsis suspected secondary to urinary tract infection with concomitant infection of sacral decubitus ulcer. Patient admitted to [facility] and initiated on sepsis protocol. Patient treated with packed red blood cell transfusion as well as platelet transfusion. No additional history obtainable. No prior admission for review. No medication listed at time of admission for reconciliation. Hematology was consulted for evaluation of thrombocytopenia. Patient examined at bedside, in no acute distress noted. Denies bleeding; no reports of bleeding noted. Diagnosed with stage IV lung cancer April 11, 2021. Last chemotherapy was 1 month ago, in [facility], unsure of Oncologists name. DATA REVIEWED BELOW IMP: Stage IV lung cancer, s/p chemotherapy 4 weeks ago as per patient (other details unknown) Thrombocytopenia could be secondary to recent chemotherapy although doubt -ITP due to sepsis is likely Leukocytosis related to sepsis/infection Coagulopathy, underlying liver dysfunction PLAN: Monitor CBC Standing orders: -Transfuse 1 dose of plts whenever plt count <20 -Transfuse 2 units FFP if severe bleeding Consider initiation of solu medrol 1mg/kg IV BID if plt count is refractory to transfusions Follow blood cultures Laboratory Last Values WBC 25.1 K/mm3 (4.5-11.0) H 03/13/22 08:14 Hgb 12.0 gm/dl (11.8-15.2) 03/13/22 08:14 Hct 34.6 % (35.5-45.6) L 03/13/22 08:14 MCV 89 fl (84-94) 03/13/22 08:14 Plt Count 17 K/mm3 (140-440) L* 03/13/22 08:14 Seg Neuts % (Manual) 84.0 % (40.0-70.0) H 03/13/22 08:14 Lymphocytes % (Manual) 0 % (13.4-35.0) L 03/13/22 08:14 Nucleated RBC % 8.0 % (0.0-0.9) H 03/13/22 08:14 Seg Neutrophils # Man 21.1 K/mm3 (1.8-7.7) H 03/13/22 08:14 Lymphocytes # (Manual) 0.0 K/mm3 (1.2-5.4) L 03/13/22 08:14 Monocytes # (Manual) 1.5 K/mm3 (0.0-0.8) H 03/13/22 08:14 PT 17.1 Sec. (12.2-14.9) H 03/12/22 08:20 INR 1.21 (0.87-1.13) H 03/12/22 08:20 APTT 31.0 Sec. (24.2-36.6) 03/12/22 08:20 Creatinine 1.0 mg/dL (0.8-1.3) 03/13/22 08:14 AST 63 units/L (5-40) H 03/12/22 06:46 ALT 19 units/L (7-56) 03/12/22 06:46 Alkaline Phosphatase 311 units/L (35-129) H 03/12/22 06:46 Blood Type O POSITIVE 03/12/22 08:21 Antibody Screen Negative 03/12/22 08:21 Crossmatch See Detail 03/12/22 08:21 Past History Past Medical History: cancer, other (See HPI) Past Surgical History: No surgical history, Other (Reviewed) Social history: single. denies: smoking, alcohol abuse Family history: hypertension Medications and Allergies Allergies Allergy/AdvReac Type Severity Reaction Status Date / Time atorvastatin [From Lipitor] Allergy Unknown Verified 03/12/22 06:46 Active Meds: Active Medications Acetaminophen (Acetaminophen 325 Mg Tab) 650 mg PO Q6H PRN PRN Reason: Pain, Mild (1-3) Albuterol (Albuterol 2.5 Mg/3 Ml Nebu) 2.5 mg IH Q3HRT PRN PRN Reason: Shortness Of Breath Dextrose (Dextrose 50% In Water (25gm) 50 Ml Syringe) 50 ml IV Q30MIN PRN; Protocol PRN Reason: Hypoglycemia Last Admin: 03/13/22 13:25 Dose: 50 ml Hydromorphone HCl (Hydromorphone 0.5 Mg/0.5 Ml Inj) 0.25 mg IV Q4H PRN PRN Reason: Pain, Moderate (4-6) Ceftriaxone Sodium (Rocephin/Ns 1 Gm/50 Ml) 1 gm in 50 mls @ 100 mls/hr IV Q24H RJ; Protocol Stop: 03/14/22 13:29 Last Admin: 03/13/22 12:18 Dose: 100 mls/hr Sodium Chloride (Nacl 0.9% 500 Ml) 500 mls @ 0 mls/hr IV ONCE RJ Sodium Chloride (Nacl 0.9% 1000 Ml) 1,000 mls @ 75 mls/hr IV DIRECT RJ Stop: 03/14/22 02:34 Morphine Sulfate (Morphine 4 Mg/1 Ml Inj) 2 mg IV Q8H PRN PRN Reason: Pain , Severe (7-10) Oxycodone/Acetaminophen (Oxycodone /Acetaminophen 5-325mg Tab) 1 tab PO Q6H PRN PRN Reason: Pain, Moderate (4-6) Sodium Chloride (Sodium Chloride 0.9% 10 Ml Flush Syringe) 10 ml IV BID RJ Last Admin: 03/13/22 09:53 Dose: 10 ml Sodium Chloride (Sodium Chloride 0.9% 10 Ml Flush Syringe) 10 ml IV PRN PRN PRN Reason: LINE FLUSH Exam - Constitutional Vitals: Last Vital Signs Temp 98.3 F 03/13/22 11:42 Pulse 98 H 03/13/22 11:42 Resp 20 03/13/22 11:42 BP 87/60 03/13/22 11:42 Pulse Ox 92 03/13/22 11:42 Results - Labs lab Results: Laboratory Results - last 24 hr 03/12/22 03/12/22 03/13/22 08:21 18:18 00:35 WBC 25.2 H RBC 4.00 Hgb 12.1 D Hct 36.3 D MCV 91 MCH 30 MCHC 33 RDW 18.4 H Plt Count 31 L D Add Manual Diff Total Counted Seg Neuts % (Manual) Band Neutrophils % Lymphocytes % (Manual) Reactive Lymphs % (Man) Monocytes % (Manual) Eosinophils % (Manual) Basophils % (Manual) Metamyelocytes % Myelocytes % Promyelocytes % Blast Cells % Nucleated RBC % Seg Neutrophils # Man Band Neutrophils # Lymphocytes # (Manual) Abs React Lymphs (Man) Monocytes # (Manual) Eosinophils # (Manual) Basophils # (Manual) Metamyelocytes # Myelocytes # Promyelocytes # Blast Cells # WBC Morphology Hypersegmented Neuts Hyposegmented Neuts Hypogranular Neuts Smudge Cells Toxic Granulation Toxic Vacuolation Dohle Bodies Pelger-Huet Anomaly Blu Rods Platelet Estimate Clumped Platelets Plt Clumps, EDTA Large Platelets Giant Platelets Platelet Satelliting Plt Morphology Comment RBC Morphology Dimorphic RBCs Polychromasia Hypochromasia Poikilocytosis Anisocytosis Microcytosis Macrocytosis Spherocytes Pappenheimer Bodies Sickle Cells Target Cells Tear Drop Cells Ovalocytes Helmet Cells [place] Bodies [place] Rings [place] Cells Bite Cells Crenated Cell Elliptocytes Acanthocytes (Spur) Rouleaux Hemoglobin C Crystals Schistocytes Malaria parasites [place] Bodies Hem Pathologist Commnt Sodium Potassium Chloride Carbon Dioxide Anion Gap BUN Creatinine Estimated GFR BUN/Creatinine Ratio Glucose POC Glucose Lactic Acid 3.80 H* Calcium Procalcitonin Blood Type O POSITIVE Antibody Screen Negative Crossmatch See Detail 03/13/22 03/13/22 03/13/22 00:35 08:14 08:14 WBC 25.1 H RBC 3.87 Hgb 12.0 Hct 34.6 L MCV 89 MCH 31 MCHC 35 H RDW 18.8 H Plt Count 17 L* Add Manual Diff Complete Total Counted 100 Seg Neuts % (Manual) 84.0 H Band Neutrophils % 7.0 Lymphocytes % (Manual) 0 L Reactive Lymphs % (Man) 0 Monocytes % (Manual) 6.0 Eosinophils % (Manual) 0 Basophils % (Manual) 0 Metamyelocytes % 3.0 Myelocytes % 0 Promyelocytes % 0 Blast Cells % 0 Nucleated RBC % 8.0 H Seg Neutrophils # Man 21.1 H Band Neutrophils # 1.8 Lymphocytes # (Manual) 0.0 L Abs React Lymphs (Man) 0.0 Monocytes # (Manual) 1.5 H Eosinophils # (Manual) 0.0 Basophils # (Manual) 0.0 Metamyelocytes # 0.8 Myelocytes # 0.0 Promyelocytes # 0.0 Blast Cells # 0.0 WBC Morphology Not Reportable Hypersegmented Neuts Not Reportable Hyposegmented Neuts Not Reportable Hypogranular Neuts Not Reportable Smudge Cells Not Reportable Toxic Granulation Not Reportable Toxic Vacuolation Not Reportable Dohle Bodies Not Reportable Pelger-Huet Anomaly Not Reportable Blu Rods Not Reportable Platelet Estimate Consistent w auto Clumped Platelets Not Reportable Plt Clumps, EDTA Not Reportable Large Platelets Not Reportable Giant Platelets Not Reportable Platelet Satelliting Not Reportable Plt Morphology Comment Not Reportable RBC Morphology Not Reportable Dimorphic RBCs Not Reportable Polychromasia Few Hypochromasia Not Reportable Poikilocytosis Not Reportable Anisocytosis Few Microcytosis Not Reportable Macrocytosis Not Reportable Spherocytes Few Pappenheimer Bodies Not Reportable Sickle Cells Not Reportable Target Cells 1+ Tear Drop Cells Not Reportable Ovalocytes Not Reportable Helmet Cells Not Reportable [place] Bodies Not Reportable [place] Rings Not Reportable [place] Cells Few Bite Cells Not Reportable Crenated Cell Not Reportable Elliptocytes 1+ Acanthocytes (Spur) Not Reportable Rouleaux Not Reportable Hemoglobin C Crystals Not Reportable Schistocytes Not Reportable Malaria parasites Not Reportable [place] Bodies Not Reportable Hem Pathologist Commnt No Sodium 139 Potassium 4.7 Chloride 106.1 Carbon Dioxide 20 L Anion Gap 18 BUN 72 H Creatinine 1.0 Estimated GFR > 60 BUN/Creatinine Ratio 72 Glucose 61 L POC Glucose Lactic Acid 2.60 H* Calcium 7.4 L Procalcitonin Blood Type Antibody Screen Crossmatch 03/13/22 03/13/22 03/13/22 08:14 12:08 12:08 WBC RBC Hgb Hct MCV MCH MCHC RDW Plt Count Add Manual Diff Total Counted Seg Neuts % (Manual) Band Neutrophils % Lymphocytes % (Manual) Reactive Lymphs % (Man) Monocytes % (Manual) Eosinophils % (Manual) Basophils % (Manual) Metamyelocytes % Myelocytes % Promyelocytes % Blast Cells % Nucleated RBC % Seg Neutrophils # Man Band Neutrophils # Lymphocytes # (Manual) Abs React Lymphs (Man) Monocytes # (Manual) Eosinophils # (Manual) Basophils # (Manual) Metamyelocytes # Myelocytes # Promyelocytes # Blast Cells # WBC Morphology Hypersegmented Neuts Hyposegmented Neuts Hypogranular Neuts Smudge Cells Toxic Granulation Toxic Vacuolation Dohle Bodies Pelger-Huet Anomaly Blu Rods Platelet Estimate Clumped Platelets Plt Clumps, EDTA Large Platelets Giant Platelets Platelet Satelliting Plt Morphology Comment RBC Morphology Dimorphic RBCs Polychromasia Hypochromasia Poikilocytosis Anisocytosis Microcytosis Macrocytosis Spherocytes Pappenheimer Bodies Sickle Cells Target Cells Tear Drop Cells Ovalocytes Helmet Cells [place] Bodies [place] Rings [place] Cells Bite Cells Crenated Cell Elliptocytes Acanthocytes (Spur) Rouleaux Hemoglobin C Crystals Schistocytes Malaria parasites [place] Bodies Hem Pathologist Commnt Sodium Potassium Chloride Carbon Dioxide Anion Gap BUN Creatinine Estimated GFR BUN/Creatinine Ratio Glucose POC Glucose Lactic Acid 2.10 H* 2.40 H* Calcium Procalcitonin 4.78 Blood Type Antibody Screen Crossmatch 03/13/22 03/13/22 13:17 13:19 WBC RBC Hgb Hct MCV MCH MCHC RDW Plt Count Add Manual Diff Total Counted Seg Neuts % (Manual) Band Neutrophils % Lymphocytes % (Manual) Reactive Lymphs % (Man) Monocytes % (Manual) Eosinophils % (Manual) Basophils % (Manual) Metamyelocytes % Myelocytes % Promyelocytes % Blast Cells % Nucleated RBC % Seg Neutrophils # Man Band Neutrophils # Lymphocytes # (Manual) Abs React Lymphs (Man) Monocytes # (Manual) Eosinophils # (Manual) Basophils # (Manual) Metamyelocytes # Myelocytes # Promyelocytes # Blast Cells # WBC Morphology Hypersegmented Neuts Hyposegmented Neuts Hypogranular Neuts Smudge Cells Toxic Granulation Toxic Vacuolation Dohle Bodies Pelger-Huet Anomaly Blu Rods Platelet Estimate Clumped Platelets Plt Clumps, EDTA Large Platelets Giant Platelets Platelet Satelliting Plt Morphology Comment RBC Morphology Dimorphic RBCs Polychromasia Hypochromasia Poikilocytosis Anisocytosis Microcytosis Macrocytosis Spherocytes Pappenheimer Bodies Sickle Cells Target Cells Tear Drop Cells Ovalocytes Helmet Cells [place] Bodies [place] Rings [place] Cells Bite Cells Crenated Cell Elliptocytes Acanthocytes (Spur) Rouleaux Hemoglobin C Crystals Schistocytes Malaria parasites [place] Bodies Hem Pathologist Commnt Sodium Potassium Chloride Carbon Dioxide Anion Gap BUN Creatinine Estimated GFR BUN/Creatinine Ratio Glucose POC Glucose 45 L 34 L Lactic Acid Calcium Procalcitonin Blood Type Antibody Screen Crossmatch
[2022-03-13] MEDS ORDERED: D5W/0.45% NACL 1,000 ML IV SCH (16:00)
[2022-03-13 20:15] LABS: Color,Urine Yellow (Yellow)
[2022-03-13 20:16] LABS: Bilirubin,Urine Negative (Negative); Blood,Urine Negative (Negative); Urobilinogen,Urine 0.2 mg/dL (<2.0)
[2022-03-13 20:26] LABS: Mucus,Urine FEW /HPF; Sperm,Urine 1+ /HPF (NP)
[2022-03-13 21:34] LABS: Hemoglobin 11.2 gm/dl (11.8-15.2)
[2022-03-13 21:47] LABS: INR 1.31 (0.87-1.13)
[2022-03-14 05:19] LABS: Hematocrit 33.5 % (35.5-45.6); Hemoglobin 11.1 gm/dl (11.8-15.2); Mean Corpuscular HGB Conc 33 % (32-34); Mean Corpuscular Volume 92 fl (84-94); Red Blood Count 3.65 M/mm3 (3.65-5.03); Red Cell Distribution Width 19.8 % (13.2-15.2)
[2022-03-14 05:35] LABS: Platelet Count 18 K/mm3 (140-440)
[2022-03-14 05:39] LABS: Alanine Aminotransferase 23 units/L (7-56); Albumin 2.3 g/dL (3.9-5); BUN/Creatinine Ratio 88; Blood Urea Nitrogen 70 mg/dL (9-20); Calcium 7.4 mg/dL (8.4-10.2); Hemolysis Index 68
[2022-03-14] MEDS ORDERED: SODIUM CHLORIDE 0.9% 500 ML 500 ML IV ONE (05:39)
[2022-03-14] MEDS: FAMOTIDINE 20 MG TAB PO SCH (10:47)
[2022-03-14] MEDS: HYDROmorphone 0.5 MG/0.5 ML INJ IV PRN ×2 (10:47→21:46)
--- NOTE | 2022-03-14 11:15 | Consultation ---
History of Present Illness - Reason for Consult Consult date: 03/14/22 sepsis Requesting physician: JENNIFER PICKENS - History of Present Illness The patient is a 71-year-old longterm resident with vascular dementia, debility, stage IV lung cancer, reportedly last chemotherapy was 1 month ago, malnutrition, sacral decubitus ulcer was sent from the longterm due to lab results revealing severe thrombocytopenia. Upon admission, noted to have leukocytosis, no fever, was started on empiric antibiotics for possible UTI. WBC has increased to 29.7, infectious diseases was consulted for additional evaluation. Afebrile. Chest x-ray revealed a large right-sided pleural effusion with underlying patchy airspace disease/atelectasis. Also has a PORT in place. Review of Systems: General: no fevers,chills or rigors HEENT: no new visual disturbance Respiratory: Mild shortness of breath Cardiovascular: No chest pain, syncope Gastrointestinal: No nausea, vomiting or diarrhea Genitourinary: No dysuria or hematuria Musculoskeletal: No new or worsening neck pain or back pain Neurologic: No headaches, seizures Hematologic: No easy bruising or bleeding Endocrine: No night sweats or acute weight loss Skin: negative for rash, jaundice Psychiatric: No suicidal or homicidal ideation Past History Past Medical History: cancer, other (See HPI) Past Surgical History: No surgical history, Other (Reviewed) Social history: single. denies: smoking, alcohol abuse Family history: hypertension Medications and Allergies Allergies Allergy/AdvReac Type Severity Reaction Status Date / Time atorvastatin [From Lipitor] Allergy Unknown Verified 03/12/22 06:46 Active Meds: Active Medications Acetaminophen (Acetaminophen 325 Mg Tab) 650 mg PO Q6H PRN PRN Reason: Pain, Mild (1-3) Albuterol (Albuterol 2.5 Mg/3 Ml Nebu) 2.5 mg IH Q3HRT PRN PRN Reason: Shortness Of Breath Dextrose (Dextrose 50% In Water (25gm) 50 Ml Syringe) 50 ml IV Q30MIN PRN; Protocol PRN Reason: Hypoglycemia Last Admin: 03/13/22 13:25 Dose: 50 ml Famotidine (Famotidine 20 Mg Tab) 20 mg PO QDAY RJ Last Admin: 03/14/22 10:47 Dose: 20 mg Hydromorphone HCl (Hydromorphone 0.5 Mg/0.5 Ml Inj) 0.25 mg IV Q4H PRN PRN Reason: Pain, Moderate (4-6) Last Admin: 03/14/22 10:47 Dose: 0.25 mg Ceftriaxone Sodium (Rocephin/Ns 1 Gm/50 Ml) 1 gm in 50 mls @ 100 mls/hr IV Q24H RJ; Protocol Stop: 03/14/22 13:29 Last Admin: 03/13/22 12:18 Dose: 100 mls/hr Sodium Chloride (Nacl 0.9% 500 Ml) 500 mls @ 0 mls/hr IV ONCE RJ Morphine Sulfate (Morphine 4 Mg/1 Ml Inj) 2 mg IV Q8H PRN PRN Reason: Pain , Severe (7-10) Last Admin: 03/14/22 03:43 Dose: 2 mg Oxycodone/Acetaminophen (Oxycodone /Acetaminophen 5-325mg Tab) 1 tab PO Q6H PRN PRN Reason: Pain, Moderate (4-6) Sodium Chloride (Sodium Chloride 0.9% 10 Ml Flush Syringe) 10 ml IV BID [facility] Last Admin: 03/14/22 10:47 Dose: 10 ml Sodium Chloride (Sodium Chloride 0.9% 10 Ml Flush Syringe) 10 ml IV PRN PRN PRN Reason: LINE FLUSH Physical Examination - Physical Exam Narrative exam: Physical Exam: Constitutional: Alert, cooperative. No acute distress. Cachexia. Head, Ears, Nose: Normocephalic, atraumatic. External ears, nose normal Eyes: Conjunctivae/corneas clear. No icterus. No ptosis. Neck: Supple, no meningeal signs Cardiovascular: S1, S2 + Respiratory: Good air entry, clear to auscultation bilaterally GI: Soft, non-tender; bowel sounds normal. No peritoneal signs Musculoskeletal: No pedal edema, no cyanosis. Cachexia Skin: Sacral decubitus ulcer with dressing Hem/Lymphatic: No palpable cervical or supraclavicular nodes. No lymphangitis Psych: Mood ok. Affect normal Neurological: Awake, alert, oriented. No gross abnormality - Constitutional Vitals: Vital Signs Temp Pulse Resp BP Pulse Ox 96.2 F L 86 16 97/62 92 03/14/22 05:17 03/14/22 06:01 03/14/22 06:01 03/14/22 06:01 03/14/22 09:00 Temperature -Last 24 Hours Temperature 96.2 F Temperature 97.5 F Temperature 97.6 F Temperature 98.3 F Results - Labs CBC & Chem 7: 03/14/22 04:54 03/14/22 04:54 Labs: Abnormal lab results 03/12/22 03/12/22 03/13/22 Range/Units 08:21 18:30 12:08 WBC (4.5-11.0) K/mm3 Hgb (11.8-15.2) gm/dl Hct (35.5-45.6) % RDW (13.2-15.2) % Plt Count (140-440) K/mm3 PT (12.2-14.9) Sec. INR (0.87-1.13) Potassium (3.6-5.0) mmol/L Chloride (98-107) mmol/L Carbon Dioxide (22-30) mmol/L BUN (9-20) mg/dL Glucose (75-100) mg/dL POC Glucose (70-105) mg/dL Lactic Acid 2.40 H* (0.7-2.0) mmol/L Calcium (8.4-10.2) mg/dL AST (5-40) units/L Alkaline Phosphatase (35-129) units/L Total Protein (6.3-8.2) g/dL Albumin (3.9-5) g/dL Ur Specific [place] 1.035 H (1.003-1.030) Crossmatch See Detail 03/13/22 03/13/22 03/13/22 Range/Units 13:17 13:19 14:42 WBC (4.5-11.0) K/mm3 Hgb (11.8-15.2) gm/dl Hct (35.5-45.6) % RDW (13.2-15.2) % Plt Count (140-440) K/mm3 PT (12.2-14.9) Sec. INR (0.87-1.13) Potassium (3.6-5.0) mmol/L Chloride (98-107) mmol/L Carbon Dioxide (22-30) mmol/L BUN (9-20) mg/dL Glucose (75-100) mg/dL POC Glucose 45 L 34 L 41 L (70-105) mg/dL Lactic Acid (0.7-2.0) mmol/L Calcium (8.4-10.2) mg/dL AST (5-40) units/L Alkaline Phosphatase (35-129) units/L Total Protein (6.3-8.2) g/dL Albumin (3.9-5) g/dL Ur Specific [place] (1.003-1.030) Crossmatch 03/13/22 03/13/22 03/13/22 Range/Units 14:44 17:14 20:48 WBC (4.5-11.0) K/mm3 Hgb 11.2 L (11.8-15.2) gm/dl Hct 33.0 L (35.5-45.6) % RDW (13.2-15.2) % Plt Count 33 L (140-440) K/mm3 PT (12.2-14.9) Sec. INR (0.87-1.13) Potassium (3.6-5.0) mmol/L Chloride (98-107) mmol/L Carbon Dioxide (22-30) mmol/L BUN (9-20) mg/dL Glucose (75-100) mg/dL POC Glucose 162 H 142 H (70-105) mg/dL Lactic Acid (0.7-2.0) mmol/L Calcium (8.4-10.2) mg/dL AST (5-40) units/L Alkaline Phosphatase (35-129) units/L Total Protein (6.3-8.2) g/dL Albumin (3.9-5) g/dL Ur Specific [place] (1.003-1.030) Crossmatch 03/13/22 03/13/22 03/14/22 Range/Units 20:48 20:48 00:14 WBC (4.5-11.0) K/mm3 Hgb (11.8-15.2) gm/dl Hct (35.5-45.6) % RDW (13.2-15.2) % Plt Count (140-440) K/mm3 PT 18.2 H (12.2-14.9) Sec. INR 1.31 H (0.87-1.13) Potassium (3.6-5.0) mmol/L Chloride (98-107) mmol/L Carbon Dioxide (22-30) mmol/L BUN (9-20) mg/dL Glucose (75-100) mg/dL POC Glucose 121 H (70-105) mg/dL Lactic Acid 3.80 H* (0.7-2.0) mmol/L Calcium (8.4-10.2) mg/dL AST (5-40) units/L Alkaline Phosphatase (35-129) units/L Total Protein (6.3-8.2) g/dL Albumin (3.9-5) g/dL Ur Specific [place] (1.003-1.030) Crossmatch 03/14/22 03/14/22 03/14/22 Range/Units 04:54 04:54 04:54 WBC 29.7 H (4.5-11.0) K/mm3 Hgb 11.1 L (11.8-15.2) gm/dl Hct 33.5 L (35.5-45.6) % RDW 19.8 H (13.2-15.2) % Plt Count 18 L* (140-440) K/mm3 PT (12.2-14.9) Sec. INR (0.87-1.13) Potassium 5.2 H (3.6-5.0) mmol/L Chloride 108.7 H (98-107) mmol/L Carbon Dioxide 17 L (22-30) mmol/L BUN 70 H (9-20) mg/dL Glucose 177 H (75-100) mg/dL POC Glucose (70-105) mg/dL Lactic Acid 3.70 H* (0.7-2.0) mmol/L Calcium 7.4 L (8.4-10.2) mg/dL AST 77 H (5-40) units/L Alkaline Phosphatase 326 H (35-129) units/L Total Protein 4.8 L (6.3-8.2) g/dL Albumin 2.3 L (3.9-5) g/dL Ur Specific [place] (1.003-1.030) Crossmatch 03/14/22 Range/Units 07:41 WBC (4.5-11.0) K/mm3 Hgb (11.8-15.2) gm/dl Hct (35.5-45.6) % RDW (13.2-15.2) % Plt Count (140-440) K/mm3 PT (12.2-14.9) Sec. INR (0.87-1.13) Potassium (3.6-5.0) mmol/L Chloride (98-107) mmol/L Carbon Dioxide (22-30) mmol/L BUN (9-20) mg/dL Glucose (75-100) mg/dL POC Glucose 126 H (70-105) mg/dL Lactic Acid (0.7-2.0) mmol/L Calcium (8.4-10.2) mg/dL AST (5-40) units/L Alkaline Phosphatase (35-129) units/L Total Protein (6.3-8.2) g/dL Albumin (3.9-5) g/dL Ur Specific [place] (1.003-1.030) Crossmatch - Imaging and Cardiology Chest x-ray: report reviewed, image reviewed (Chest x-ray revealed a large right-sided pleural effusion with underlying patchy airspace disease/atelectasis. Also has a PORT in place) Assessment and Plan Cultures: None so far A/P: 71-year-old longterm resident with vascular dementia, debility, stage IV lung cancer, reportedly last chemotherapy was 1 month ago, malnutrition, sacral decubitus ulcer was sent from the longterm due to lab results revealing severe thrombocytopenia: #Sepsis: Could be secondary to right-sided pneumonia, does have a large pleural effusion on the right side: Parapneumonic effusion versus malignant effusion. Sacral decubitus ulcer does not appear infected. Note the patient also has an indwelling port for chemotherapy, rule out bacteremia. #Anemia, thrombocytopenia: Oncology following #Stage IV lung cancer: On chemotherapy. #Vascular dementia #Protein calorie malnutrition Recs: -Switched to IV cefepime, vancomycin -added Flagyl to cover for any anaerobes from post obstructive pneumonia -Blood cultures ordered, has indwelling PORT -if thrombocytopenia improves, consider R thoracentesis to rule out empyema -wound care -overall guarded prognosis Geovanni Andres MD, FACP, [facility] O: [phone] F: [phone] C: [phone]
[2022-03-14] MEDS ORDERED: VANCOMYCIN 750 MG in SODIUM CHLORIDE 0.9% 500 ML 500 ML IV ONE (11:16)
[2022-03-14] MEDS: CEFEPIME/NS 2 GM/100 ML 2 GM/100 ML BAG IV SCH ×2 (11:51→21:46)
[2022-03-14] MEDS ORDERED: VANCOMYCIN/NS 1 GM/250 ML 1 GM/250 ML BAG IV ONE (12:00)
[2022-03-14] MEDS ORDERED: VANCOMYCIN PHARMACY TO DOSE IV SCH (12:00)
--- NOTE | 2022-03-14 12:33 | Progress Note ---
Assessment and Plan Assessment and plan: This is a 71-year-old male with known past medical history of stage 4 Lung CA s/p Chemo, vascular dementia, cerebral atherosclerosis, malnutrition, debility, sacral decubitus ulcer admitted for sepsis, anemia, and severe thrombocytopenia. Hospital Course to Date: 03/13: S/p 3units of PRBCs and 2units of plt. Platelets counts are still low this am, last unit of plt pending. Patient remains mentally intact, stable on 2L NC. No s/s of any active bleeding, stool occult negative. Hematology consulted for further recs. Patient is also hypotensive this am. Remains afebrile, however with worsen leukocytosis, UA and blood cultures pending. BP improved post IVF bolus and continuous IVF ordered. Will check a procal, continue current empiric IV Abx for now. Consider ID consult if leukocytosis worsen or if patient is febrile. Hypoglycemia also noted from this am labs, treated per hypoglycemic protocol. Encourage PO intake, BG check ACHS, chief operating officer/nutrition consulted. PT/OT also ordered. Records requested from [facility]. 03/14: Patient seen and examined remains hypotensive. Worsening leukocytosis. Consulted ID for possible underlying sepsis. Patient does have a right-sided pn eumonia with large pleural effusion. While this could be malignant effusion it could also be infected parapneumonic effusion. On my discussion with ID we also considered if patient possibly got new nueclast which can stimulate white cells. In any case antibiotics changes per ID. We will consider right-sided thoracentesis once thrombocytopenia is improved. Considering hematology recommendation and refractory plt, will start on steroids. Assessment and Plan #Sepsis #Probably UTI #Sacral Decubitus Ulcer(POA) - Resides at a nursing and per patient with multiple hospitalization since april, - With worsen leukocytosis, now hypotensive with worsen lactic acidosis. Remains afebrile - UA, blood cultures, MRSA pending - Patient also presented with stage 2 sacral wound. Wound appears clean, no indication for any infection - Procal ordered - Continue current empiric IV Abx - Continue IVF hydration - Trend Lactic acid - F/U on cultures - Daily CBC monitor - Consider ID consult if febrile or/and if leukocytosis persists - Frquent repositioning and wound care per nursing staffs - Wound care also consulted #Right-sided large pleural effusion #normocytic Anemia #Thrombocytopenia - Presented with low H&H and low platelets - Probably due chemotherapy vs sepsis - Per patient last chemo treatment was a month ago at [facility] and the dosage was too strong for him at the time. - s/p 3units of PRBCs and 2units of platelets - No s/s of any active bleeding - Stool occult negative - Plt still low this am, additional 1unit of plt ordered - Continue sepsis w/up and IV abx - Hematology consulted for further rec - Transfuse for Hgb less than 7 and plt less than 20 - Records requested from [facility] #Hypotension - probably related to sepsis - BP improved post IVF bolus - Continue sepsis w/up and current empiric IV Abx - Continue rehydration with cont. IVF - Continue blood pressure monitor per protocol - Maintain MAP above 65 #Hypoglycemia - Low BG noted from this am labs - Probably due to poor PO intake - BG treated per [id number] protocol - Check BG ACHS - Avoid hypoglycemia - Continue hypoglycemic protocol #Stage 4 Lung Cancer s/p Chemo - Per patient last chemo treatment was a month ago at [facility] and the dosage was too strong for him at the time. - Currently stable on 2L NC - Continue O2 supplementation wean as tolerated - Continue SPO2 monitoring for SPO2 goal above 92% - Follow up outpatient with Oncology for further management #Moderate Protein-Calorie Malnutrition - Encourage PO intake - Increase protein intake, dietary supplementation. - Sheet Cutting Operator/Nutrition consulted #Vascular Dementia #Debility - Mentation improved, fully AAO today - Verbal prompting, verbal redirection - Avoid benzodiazepine to reduce the possibility of delirium - PRN Analgesia for pain control - Maintenance of sleep-wake cycle - PT/OT consulted #GI/DVT Prophylaxis - PPI- Pepcid - SCDs bilateral lower extremities while in bed #Advance Care Planning - Disease education data, care plan, diagnoses, and prognosis were discussed with patient at the bedside. Patient is a FULL code. Patient acknowledged und erstanding and agreed with current care plan. Prognosis is guarded The high probability of a clinically significant, sudden or life threatening deterioration of the [multiple] system(s) required my full and direct attention, intervention and personal management. The aggregate critical care time was [60] minutes. This time is in addition to time spent performing reported procedures but includes the following: [x] Data Review and interpretation [x] Patient assessment and monitoring of vital signs [x] Documentation [x] Medication orders and management Disposition Plan: IMCU Total Time Spent with Patient (Minutes): 60 History Interval history: Patient seen and examined at the bedside. Fully AAO, on 2L NC, c/o generalized weakness but no pain nor any discomfort. SR on the monitor, afebrile,. No s/s of any active bleeding at this time. CYDNEY overnight. Remains hypotensive Hospitalist Physical - Physical exam Narrative exam: General appearance: Present: no acute distress, cachectic - EENT Eyes: Present: PERRL, EOM intact ENT: hearing intact - Neck Neck: Present: normal ROM - Respiratory Respiratory effort: normal Respiratory: bilateral: diminished - Cardiovascular Rhythm: regular Heart Sounds: Present: S1 & S2 - Extremities Extremities: no ischemia, pulses intact, pulses symmetrical Peripheral Pulses: within normal limits - Abdominal General gastrointestinal: soft, non-distended, normal bowel sounds - Integumentary Integumentary: Present: warm, dry - Psychiatric Psychiatric: appropriate mood/affect, cooperative - Neurologic Neurologic: CNII-XII intact, moves all extremities, other (Generalized weakness) - Allied Health Allied health notes reviewed: nursing, case management - Constitutional Vitals: Temp Pulse Resp BP Pulse Ox 96.2 F L 93 H 20 91/58 96 03/14/22 12:26 03/14/22 12:00 03/14/22 12:00 03/14/22 12:00 03/14/22 12:00 General appearance: Present: no acute distress, cachectic Results - Labs CBC & Chem 7: 03/14/22 04:54 03/14/22 04:54 Labs: Laboratory Last Values WBC 29.7 K/mm3 (4.5-11.0) H 03/14/22 04:54 RBC 3.65 M/mm3 (3.65-5.03) 03/14/22 04:54 Hgb 11.1 gm/dl (11.8-15.2) L 03/14/22 04:54 Hct 33.5 % (35.5-45.6) L 03/14/22 04:54 MCV 92 fl (84-94) 03/14/22 04:54 MCH 30 pg (28-32) 03/14/22 04:54 MCHC 33 % (32-34) 03/14/22 04:54 RDW 19.8 % (13.2-15.2) H 03/14/22 04:54 Plt Count 18 K/mm3 (140-440) L* 03/14/22 04:54 Add Manual Diff Complete 03/13/22 08:14 Total Counted 100 03/13/22 08:14 Seg Neuts % (Manual) 84.0 % (40.0-70.0) H 03/13/22 08:14 Band Neutrophils % 7.0 % 03/13/22 08:14 Lymphocytes % (Manual) 0 % (13.4-35.0) L 03/13/22 08:14 Reactive Lymphs % (Man) 0 % 03/13/22 08:14 Monocytes % (Manual) 6.0 % (0.0-7.3) 03/13/22 08:14 Eosinophils % (Manual) 0 % (0.0-4.3) 03/13/22 08:14 Basophils % (Manual) 0 % (0.0-1.8) 03/13/22 08:14 Metamyelocytes % 3.0 % 03/13/22 08:14 Myelocytes % 0 % 03/13/22 08:14 Promyelocytes % 0 % 03/13/22 08:14 Blast Cells % 0 % 03/13/22 08:14 Nucleated RBC % 8.0 % (0.0-0.9) H 03/13/22 08:14 Seg Neutrophils # Man 21.1 K/mm3 (1.8-7.7) H 03/13/22 08:14 Band Neutrophils # 1.8 K/mm3 03/13/22 08:14 Lymphocytes # (Manual) 0.0 K/mm3 (1.2-5.4) L 03/13/22 08:14 Abs React Lymphs (Man) 0.0 K/mm3 03/13/22 08:14 Monocytes # (Manual) 1.5 K/mm3 (0.0-0.8) H 03/13/22 08:14 Eosinophils # (Manual) 0.0 K/mm3 (0.0-0.4) 03/13/22 08:14 Basophils # (Manual) 0.0 K/mm3 (0.0-0.1) 03/13/22 08:14 Metamyelocytes # 0.8 K/mm3 03/13/22 08:14 Myelocytes # 0.0 K/mm3 03/13/22 08:14 Promyelocytes # 0.0 K/mm3 03/13/22 08:14 Blast Cells # 0.0 K/mm3 03/13/22 08:14 WBC Morphology Not Reportable 03/13/22 08:14 Hypersegmented Neuts Not Reportable 03/13/22 08:14 Hyposegmented Neuts Not Reportable 03/13/22 08:14 Hypogranular Neuts Not Reportable 03/13/22 08:14 Smudge Cells Not Reportable 03/13/22 08:14 Toxic Granulation Not Reportable 03/13/22 08:14 Toxic Vacuolation Not Reportable 03/13/22 08:14 Dohle Bodies Not Reportable 03/13/22 08:14 Pelger-Huet Anomaly Not Reportable 03/13/22 08:14 Blu Rods Not Reportable 03/13/22 08:14 Platelet Estimate Consistent w auto 03/13/22 08:14 Clumped Platelets Not Reportable 03/13/22 08:14 Plt Clumps, EDTA Not Reportable 03/13/22 08:14 Large Platelets Not Reportable 03/13/22 08:14 Giant Platelets Not Reportable 03/13/22 08:14 Platelet Satelliting Not Reportable 03/13/22 08:14 Plt Morphology Comment Not Reportable 03/13/22 08:14 RBC Morphology Not Reportable 03/13/22 08:14 Dimorphic RBCs Not Reportable 03/13/22 08:14 Polychromasia Few 03/13/22 08:14 Hypochromasia Not Reportable 03/13/22 08:14 Poikilocytosis Not Reportable 03/13/22 08:14 Anisocytosis Few 03/13/22 08:14 Microcytosis Not Reportable 03/13/22 08:14 Macrocytosis Not Reportable 03/13/22 08:14 Spherocytes Few 03/13/22 08:14 Pappenheimer Bodies Not Reportable 03/13/22 08:14 Sickle Cells Not Reportable 03/13/22 08:14 Target Cells 1+ 03/13/22 08:14 Tear Drop Cells Not Reportable 03/13/22 08:14 Ovalocytes Not Reportable 03/13/22 08:14 Helmet Cells Not Reportable 03/13/22 08:14 [place] Bodies Not Reportable 03/13/22 08:14 [place] Rings Not Reportable 03/13/22 08:14 Omega Cells Few 03/13/22 08:14 Bite Cells Not Reportable 03/13/22 08:14 Crenated Cell Not Reportable 03/13/22 08:14 Elliptocytes 1+ 03/13/22 08:14 Acanthocytes (Spur) Not Reportable 03/13/22 08:14 Rouleaux Not Reportable 03/13/22 08:14 Hemoglobin C Crystals Not Reportable 03/13/22 08:14 Schistocytes Not Reportable 03/13/22 08:14 Malaria parasites Not Reportable 03/13/22 08:14 River Bodies Not Reportable 03/13/22 08:14 Hem Pathologist Commnt No 03/13/22 08:14 PT 18.2 Sec. (12.2-14.9) H 03/13/22 20:48 INR 1.31 (0.87-1.13) H 03/13/22 20:48 APTT 31.0 Sec. (24.2-36.6) 03/12/22 08:20 Fibrinogen 283 mg/dl (211-480) 03/13/22 20:48 Sodium 138 mmol/L (137-145) 03/14/22 04:54 Potassium 5.2 mmol/L (3.6-5.0) H 03/14/22 04:54 Chloride 108.7 mmol/L (98-107) H 03/14/22 04:54 Carbon Dioxide 17 mmol/L (22-30) L 03/14/22 04:54 Anion Gap 18 mmol/L 03/14/22 04:54 BUN 70 mg/dL (9-20) H 03/14/22 04:54 Creatinine 0.8 mg/dL (0.8-1.3) 03/14/22 04:54 Estimated GFR > 60 ml/min 03/14/22 04:54 BUN/Creatinine Ratio 88 % 03/14/22 04:54 Glucose 177 mg/dL (75-100) H 03/14/22 04:54 POC Glucose 126 mg/dL (70-105) H 03/14/22 07:41 Lactic Acid 3.70 mmol/L (0.7-2.0) H* 03/14/22 04:54 Calcium 7.4 mg/dL (8.4-10.2) L 03/14/22 04:54 Total Bilirubin 0.90 mg/dL (0.1-1.2) 03/14/22 04:54 Direct Bilirubin 0.4 mg/dL (0-0.2) H 03/12/22 06:46 Indirect Bilirubin 0.6 mg/dL 03/12/22 06:46 AST 77 units/L (5-40) H 03/14/22 04:54 ALT 23 units/L (7-56) 03/14/22 04:54 Alkaline Phosphatase 326 units/L (35-129) H 03/14/22 04:54 Total Protein 4.8 g/dL (6.3-8.2) L 03/14/22 04:54 Albumin 2.3 g/dL (3.9-5) L 03/14/22 04:54 Albumin/Globulin Ratio 0.9 % 03/14/22 04:54 Procalcitonin 4.78 ng/mL (<0.15) 03/13/22 12:08 Urine Color Yellow (Yellow) 03/12/22 18:30 Urine Turbidity Clear (Clear) 03/12/22 18:30 Urine pH 5.0 (5.0-7.0) 03/12/22 18:30 Ur Specific [place] 1.035 (1.003-1.030) H 03/12/22 18:30 Urine Protein 30 mg/dl mg/dL (Negative) 03/12/22 18:30 Urine Glucose (UA) Negative mg/dL (Negative) 03/12/22 18:30 Urine Ketones Negative mg/dL (Negative) 03/12/22 18:30 Urine Blood Negative (Negative) 03/12/22 18:30 Urine Nitrite Negative (Negative) 03/12/22 18:30 Urine Bilirubin Negative (Negative) 03/12/22 18:30 Urine Urobilinogen 0.2 mg/dL (<2.0) 03/12/22 18:30 Ur Leukocyte Esterase Negative (Negative) 03/12/22 18:30 Urine WBC (Auto) 6.0 /HPF (0.0-6.0) 03/12/22 18:30 Urine RBC (Auto) 3.0 /HPF (0.0-6.0) 03/12/22 18:30 U Epithel Cells (Auto) < 1.0 /HPF (0-13.0) 03/12/22 18:30 Urine Mucus Few /HPF 03/12/22 18:30 Urine Sperm 1+ /HPF (RATE MARKER) 03/12/22 18:30 Nasal Screen MRSA (PCR) Negative (Negative) 03/12/22 17:56 Blood Type O POSITIVE 03/12/22 08:21 Antibody Screen Negative 03/12/22 08:21 Crossmatch See Detail 03/12/22 08:21 Microbiology: Microbiology 03/13/22 Unknown Stool Stool Occult Blood (RANI) - Final Ann/IV: Voiding Method Condom Catheter Active Medications - Current Medications Current Medications: Generic Name Dose Route Start Last Admin Trade Name Freq PRN Reason Stop Dose Admin Acetaminophen 650 mg 03/12/22 12:22 Acetaminophen 325 Mg Tab PO Q6H PRN Pain, Mild (1-3) Albuterol 2.5 mg 03/12/22 12:22 Albuterol 2.5 Mg/3 Ml Nebu IH Q3HRT PRN Shortness Of Breath Dextrose 50 ml 03/13/22 13:22 03/13/22 13:25 Dextrose 50% In Water (25gm) 50 Ml Syringe IV 50 ml Q30MIN PRN Administration Hypoglycemia Protocol Famotidine 20 mg 03/14/22 10:00 03/14/22 10:47 Famotidine 20 Mg Tab PO 20 mg QDAY RJ Administration Hydromorphone HCl 0.25 mg 03/12/22 12:22 03/14/22 10:47 Hydromorphone 0.5 Mg/0.5 Ml Inj IV 0.25 mg Q4H PRN Administration Pain, Moderate (4-6) Sodium Chloride 500 mls @ 0 mls/hr 03/12/22 12:26 Nacl 0.9% 500 Ml IV ONCE RJ As Directed Cefepime HCl 2 gm in 100 mls @ 200 mls/hr 03/14/22 12:00 03/14/22 11:51 Cefepime/Ns 2 Gm/100 Ml IV 200 mls/hr Q12HR RJ Administration Protocol Vancomycin HCl 1 gm in 250 mls @ 166.667 mls/hr 03/14/22 12:00 Vancomycin/Ns 1 Gm/250 Ml IV 03/14/22 13:29 ONCE ONE Vancomycin HCl 500 mg/ Sodium 110 mls @ 73.333 mls/hr 03/15/22 00:00 Chloride IV Q12H RJ Metronidazole 500 mg 03/14/22 14:00 Metronidazole 500 Mg Tab PO Q8HR [facility] Protocol Morphine Sulfate 2 mg 03/12/22 12:22 03/14/22 03:43 Morphine 4 Mg/1 Ml Inj IV 2 mg Q8H PRN Administration Pain , Severe (7-10) Oxycodone/Acetaminophen 1 tab 03/12/22 12:22 Oxycodone /Acetaminophen 5-325mg Tab PO Q6H PRN Pain, Moderate (4-6) Sodium Chloride 10 ml 03/12/22 22:00 03/14/22 10:47 Sodium Chloride 0.9% 10 Ml Flush Syringe IV 10 ml BID RJ Administration Sodium Chloride 10 ml 03/12/22 12:22 Sodium Chloride 0.9% 10 Ml Flush Syringe IV PRN PRN LINE FLUSH Nutrition/Malnutrition Assess - Dietary Evaluation Nutrition/Malnutrition Findings: Nutrition Notes Start: 03/13/22 10:05 Freq: Status: Active Protocol: Document 03/13/22 10:05 [facility] (Rec: 03/13/22 10:17 [facility] [id number] Nutrition Notes Need for Assessment generated from: MD Order,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 Pt from a [facility]. PMHx includes stage 4 malignant neoplasm s/p chemo, malnutrition, vascular dementia and cerebral atherosclerosis. 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 No Is Patient Ambulatory and/or Out of Bed No REE-([place]-Jocelynn Alvarado-confined to bed) 1524.420 Kcal/Kg value to use for calculation 40 Approximate Energy Requirements Using 1995 kcal/Kg Calculation Used for Recommendations Kcal/kg Additional Notes Pro needs 1.25-1.5g/k-75g /day Fluid needs 1ml/kcal Nutrition Intervention Change Diet Order: Change diet to [facility] soft Add Supplement/Snack (indicate name/kcal Ensure Enlive TID (chocolate) /protein ) Provides kCal: 1,050 Provides Protein (gm) 60 Goal #1 PO intake of meals plus ONS to meet 100% energy and pro needs Goal #2 Wound healing Goal #3 Wt maintenance and/or gain Anticipated Discharge Needs: Continue ONS 2-3 times daily for wt maintenance; MVI with minerals once daily, 500mg Vit C BID for wound healing Follow-Up By: 03/16/22 Additional Comments F/U: intakes (meals/ONS)
[2022-03-14] MEDS: metroNIDAZOLE 500 MG TAB PO SCH ×2 (13:53→21:46)
[2022-03-14] MEDS: methylPREDNISolone Sod Succinate 125 MG/2 ML INJ IV SCH (13:53)
[2022-03-14] MEDS ORDERED: FUROSEMIDE 40 MG/4 ML INJ IV ONE (16:00)
[2022-03-14 18:17] LABS: ABG Base Excess -13.2 mmol/L (-2.0-3.0); ABG Methemoglobin 0.7 % (0.0-1.5); ABG Oxygen Saturation 79.5 % (95.0-99.0); ABG PCO2 51.6 mm Hg
[2022-03-14 18:34] LABS: ABG PH 7.108 pH Units (7.350-7.450)
[2022-03-14] MEDS ORDERED: SODIUM BICARB 8.4% 50 MEQ/50 ML SYRINGE IV ONE (19:00)
--- NOTE | 2022-03-14 19:15 | Event Note ---
Date: 03/14/22 Patient family meeting conducted today with medical decision makers. Patient family members informed of patient's poor prognosis. Patient found to have a malignant pleural effusion with stage IV metastatic lung cancer. Patient found to have a prognosis of 6 months or less of the illness runs its expected course. Patient family acknowledges poor prognosis. Patient family elects to make patient DNR and to initiate comfort care. Patient family wants to initiate hospice care upon discharge to retirement facility. Advanced care planning conducted. +30 minutes. Patient family acknowledged understanding and agreement with care plan.
[2022-03-14] MEDS: SODIUM BICARBONATE 150 MEQ in DEXTROSE 5% IN WATER 1,000 ML IV SCH (20:50)
[2022-03-15] MEDS: VANCOMYCIN 500 MG in SODIUM CHLORIDE 0.9% 100 ML IV SCH ×2 (00:32→12:57)
[2022-03-15] MEDS: methylPREDNISolone Sod Succinate 125 MG/2 ML INJ IV SCH ×2 (02:10→14:25)
[2022-03-15] MEDS: metroNIDAZOLE 500 MG TAB PO SCH ×2 (06:10→23:38)
[2022-03-15] MEDS: SODIUM BICARBONATE 150 MEQ in DEXTROSE 5% IN WATER 1,000 ML IV SCH (09:19)
[2022-03-15] MEDS: CEFEPIME/NS 2 GM/100 ML 2 GM/100 ML BAG IV SCH ×2 (09:19→23:21)
[2022-03-15] MEDS: FAMOTIDINE 20 MG TAB PO SCH (09:20)
--- NOTE | 2022-03-15 10:25 | Progress Note ---
Assessment and Plan Assessment and plan: This is a 71-year-old male with known past medical history of stage 4 Lung CA s/p Chemo, vascular dementia, cerebral atherosclerosis, malnutrition, debility, sacral decubitus ulcer admitted for sepsis, anemia, and severe thrombocytopenia. Hospital Course to Date: 03/13: S/p 3units of PRBCs and 2units of plt. Platelets counts are still low this am, last unit of plt pending. Patient remains mentally intact, stable on 2L NC. No s/s of any active bleeding, stool occult negative. Hematology consulted for further recs. Patient is also hypotensive this am. Remains afebrile, however with worsen leukocytosis, UA and blood cultures pending. BP improved post IVF bolus and continuous IVF ordered. Will check a procal, continue current empiric IV Abx for now. Consider ID consult if leukocytosis worsen or if patient is febrile. Hypoglycemia also noted from this am labs, treated per hypoglycemic protocol. Encourage PO intake, BG check ACHS, pupil personnel services director/nutrition consulted. PT/OT also ordered. Records requested from [facility]. 03/14: Patient seen and examined remains hypotensive. Worsening leukocytosis. Consulted ID for possible underlying sepsis. Patient does have a right-sided pn eumonia with large pleural effusion. While this could be malignant effusion it could also be infected parapneumonic effusion. On my discussion with ID we also considered if patient possibly got new nueclast which can stimulate white cells. In any case antibiotics changes per ID. We will consider right-sided thoracentesis once thrombocytopenia is improved. Considering hematology recommendation and refractory plt, will start on steroids. 03/15: Patient seen and examined, unfortunately continues with Acute Respiratory distress, on Continuous BiPAP. labs returned, platelet down to 10, will give single donnor platelet. Poor prognosis. PER MY COLLEAGUE YESTERDAY: Patient family meeting conducted today with medical decision makers. Patient family members informed of patient's poor prognosis. Patient found to have a malignant pleural effusion with stage IV metastatic lung cancer. Patient found to have a prognosis of 6 months or less of the illness runs its expected course. Patient family acknowledges poor prognosis. Patient family elects to make patient DNR and to initiate comfort care. Patient family wants to initiate hospice care upon discharge to nursing home facility. Advanced care planning conducted. +30 minutes. Patient family acknowledged understanding and agreem ent with care plan. Assessment and Plan #Sepsis #Probably UTI #Sacral Decubitus Ulcer(POA) - Resides at a nursing and per patient with multiple hospitalization since april, - With worsen leukocytosis, now hypotensive with worsen lactic acidosis. Remains afebrile - UA, blood cultures, MRSA pending - Patient also presented with stage 2 sacral wound. Wound appears clean, no indication for any infection - Procal ordered - Continue current empiric IV Abx - Continue IVF hydration - Trend Lactic acid - F/U on cultures - Daily CBC monitor - Consider ID consult if febrile or/and if leukocytosis persists - Frquent repositioning and wound care per nursing staffs - Wound care also consulted #Right-sided large pleural effusion #normocytic Anemia #Thrombocytopenia - Presented with low H&H and low platelets - Probably due chemotherapy vs sepsis - Per patient last chemo treatment was a month ago at [facility] and the dosage was t oo strong for him at the time. - s/p 3units of PRBCs and 2units of platelets - No s/s of any active bleeding - Stool occult negative - Plt still low this am, additional 1unit of plt ordered - Continue sepsis w/up and IV abx - Hematology consulted for further rec - Transfuse for Hgb less than 7 and plt less than 20 - Records requested from [facility] #Hypotension - probably related to sepsis - BP improved post IVF bolus - Continue sepsis w/up and current empiric IV Abx - Continue rehydration with cont. IVF - Continue blood pressure monitor per protocol - Maintain MAP above 65 #Hypoglycemia - Low BG noted from this am labs - Probably due to poor PO intake - BG treated per [id number] protocol - Check BG ACHS - Avoid hypoglycemia - Continue hypoglycemic protocol #Stage 4 Lung Cancer s/p Chemo - Per patient last chemo treatment was a month ago at [facility] and the dosage was too strong for him at the time. - Currently stable on 2L NC - Continue O2 supplementation wean as tolerated - Continue SPO2 monitoring for SPO2 goal above 92% - Follow up outpatient with Oncology for further management #Moderate Protein-Calorie Malnutrition - Encourage PO intake - Increase protein intake, dietary supplementation. - Gas Appliance Adjuster/Nutrition consulted #Vascular Dementia #Debility - Mentation improved, fully AAO today - Verbal prompting, verbal redirection - Avoid benzodiazepine to reduce the possibility of delirium - PRN Analgesia for pain control - Maintenance of sleep-wake cycle - PT/OT consulted #GI/DVT Prophylaxis - PPI- Pepcid - SCDs bilateral lower extremities while in bed #Advance Care Planning - Disease education data, care plan, diagnoses, and prognosis were discussed wi th patient at the bedside. Patient is a FULL code. Patient acknowledged understanding and agreed with current care plan. Prognosis is guarded The high probability of a clinically significant, sudden or life threatening deterioration of the [multiple] system(s) required my full and direct attention, intervention and personal management. The aggregate critical care time was [60] minutes. This time is in addition to time spent performing reported procedures but includes the following: [x] Data Review and interpretation [x] Patient assessment and monitoring of vital signs [x] Documentation [x] Medication orders and management Disposition Plan: IMCU Total Time Spent with Patient (Minutes): 60 History Interval history: Patient seen and examined at the bedside. Patient remains very lethargic, and Now on BIPAP since yesterday. Family opted for comfort care yesterday and anticipate Hospice on discharge Hospitalist Physical - Physical exam Narrative exam: General appearance: Present: no acute distress, cachectic. on BIPAP, mild to moderate respiratory distress - EENT Eyes: Present: PERRL, EOM intact ENT: hearing intact - Neck Neck: Present: normal ROM - Respiratory Respiratory effort: normal Respiratory: bilateral: diminished - Cardiovascular Rhythm: regular Heart Sounds: Present: S1 & S2 - Extremities Extremities: no ischemia, pulses intact, pulses symmetrical Peripheral Pulses: within normal limits - Abdominal General gastrointestinal: soft, non-distended, normal bowel sounds - Integumentary Integumentary: Present: warm, dry - Psychiatric Psychiatric: unable to assess - Neurologic Neurologic: CNII-XII intact, moves all extremities, other (Generalized weakness) - Allied Health Allied health notes reviewed: nursing, case management - Constitutional Vitals: Temp Pulse Resp BP Pulse Ox 97.2 F L 97 H 16 102/60 41 L 03/15/22 08:00 03/15/22 09:00 03/15/22 09:00 03/15/22 09:00 03/15/22 09:00 General appearance: Present: no acute distress, cachectic Results - Labs CBC & Chem 7: 03/15/22 Unknown 03/15/22 Unknown Labs: Laboratory Last Values WBC 29.7 K/mm3 (4.5-11.0) H 03/14/22 04:54 RBC 3.65 M/mm3 (3.65-5.03) 03/14/22 04:54 Hgb 11.1 gm/dl (11.8-15.2) L 03/14/22 04:54 Hct 33.5 % (35.5-45.6) L 03/14/22 04:54 MCV 92 fl (84-94) 03/14/22 04:54 MCH 30 pg (28-32) 03/14/22 04:54 MCHC 33 % (32-34) 03/14/22 04:54 RDW 19.8 % (13.2-15.2) H 03/14/22 04:54 Plt Count 29 K/mm3 (140-440) L 03/14/22 14:00 Add Manual Diff Complete 03/13/22 08:14 Total Counted 100 03/13/22 08:14 Seg Neuts % (Manual) 84.0 % (40.0-70.0) H 03/13/22 08:14 Band Neutrophils % 7.0 % 03/13/22 08:14 Lymphocytes % (Manual) 0 % (13.4-35.0) L 03/13/22 08:14 Reactive Lymphs % (Man) 0 % 03/13/22 08:14 Monocytes % (Manual) 6.0 % (0.0-7.3) 03/13/22 08:14 Eosinophils % (Manual) 0 % (0.0-4.3) 03/13/22 08:14 Basophils % (Manual) 0 % (0.0-1.8) 03/13/22 08:14 Metamyelocytes % 3.0 % 03/13/22 08:14 Myelocytes % 0 % 03/13/22 08:14 Promyelocytes % 0 % 03/13/22 08:14 Blast Cells % 0 % 03/13/22 08:14 Nucleated RBC % 8.0 % (0.0-0.9) H 03/13/22 08:14 Seg Neutrophils # Man 21.1 K/mm3 (1.8-7.7) H 03/13/22 08:14 Band Neutrophils # 1.8 K/mm3 03/13/22 08:14 Lymphocytes # (Manual) 0.0 K/mm3 (1.2-5.4) L 03/13/22 08:14 Abs React Lymphs (Man) 0.0 K/mm3 03/13/22 08:14 Monocytes # (Manual) 1.5 K/mm3 (0.0-0.8) H 03/13/22 08:14 Eosinophils # (Manual) 0.0 K/mm3 (0.0-0.4) 03/13/22 08:14 Basophils # (Manual) 0.0 K/mm3 (0.0-0.1) 03/13/22 08:14 Metamyelocytes # 0.8 K/mm3 03/13/22 08:14 Myelocytes # 0.0 K/mm3 03/13/22 08:14 Promyelocytes # 0.0 K/mm3 03/13/22 08:14 Blast Cells # 0.0 K/mm3 03/13/22 08:14 WBC Morphology Not Reportable 03/13/22 08:14 Hypersegmented Neuts Not Reportable 03/13/22 08:14 Hyposegmented Neuts Not Reportable 03/13/22 08:14 Hypogranular Neuts Not Reportable 03/13/22 08:14 Smudge Cells Not Reportable 03/13/22 08:14 Toxic Granulation Not Reportable 03/13/22 08:14 Toxic Vacuolation Not Reportable 03/13/22 08:14 Dohle Bodies Not Reportable 03/13/22 08:14 Pelger-Huet Anomaly Not Reportable 03/13/22 08:14 Blu Rods Not Reportable 03/13/22 08:14 Platelet Estimate Consistent w auto 03/13/22 08:14 Clumped Platelets Not Reportable 03/13/22 08:14 Plt Clumps, EDTA Not Reportable 03/13/22 08:14 Large Platelets Not Reportable 03/13/22 08:14 Giant Platelets Not Reportable 03/13/22 08:14 Platelet Satelliting Not Reportable 03/13/22 08:14 Plt Morphology Comment Not Reportable 03/13/22 08:14 RBC Morphology Not Reportable 03/13/22 08:14 Dimorphic RBCs Not Reportable 03/13/22 08:14 Polychromasia Few 03/13/22 08:14 Hypochromasia Not Reportable 03/13/22 08:14 Poikilocytosis Not Reportable 03/13/22 08:14 Anisocytosis Few 03/13/22 08:14 Microcytosis Not Reportable 03/13/22 08:14 Macrocytosis Not Reportable 03/13/22 08:14 Spherocytes Few 03/13/22 08:14 Pappenheimer Bodies Not Reportable 03/13/22 08:14 Sickle Cells Not Reportable 03/13/22 08:14 Target Cells 1+ 03/13/22 08:14 Tear Drop Cells Not Reportable 03/13/22 08:14 Ovalocytes Not Reportable 03/13/22 08:14 Helmet Cells Not Reportable 03/13/22 08:14 [place] Bodies Not Reportable 03/13/22 08:14 [place] Rings Not Reportable 03/13/22 08:14 [place] Cells Few 03/13/22 08:14 Bite Cells Not Reportable 03/13/22 08:14 Crenated Cell Not Reportable 03/13/22 08:14 Elliptocytes 1+ 03/13/22 08:14 Acanthocytes (Spur) Not Reportable 03/13/22 08:14 Rouleaux Not Reportable 03/13/22 08:14 Hemoglobin C Crystals Not Reportable 03/13/22 08:14 Schistocytes Not Reportable 03/13/22 08:14 Malaria parasites Not Reportable 03/13/22 08:14 [place] Bodies Not Reportable 03/13/22 08:14 Hem Pathologist Commnt No 03/13/22 08:14 PT 18.2 Sec. (12.2-14.9) H 03/13/22 20:48 INR 1.31 (0.87-1.13) H 03/13/22 20:48 APTT 31.0 Sec. (24.2-36.6) 03/12/22 08:20 Fibrinogen 283 mg/dl (211-480) 03/13/22 20:48 ABG pH 7.108 pH Units (7.350-7.450) L* 03/14/22 18:00 ABG pCO2 51.6 mm Hg 03/14/22 18:00 ABG pO2 60.0 mm Hg (80.0-90.0) L 03/14/22 18:00 ABG HCO3 16.0 mmol/L (20.0-26.0) L 03/14/22 18:00 ABG O2 Saturation 79.5 % (95.0-99.0) L 03/14/22 18:00 ABG O2 Content 11.6 (0.0-44) 03/14/22 18:00 ABG Base Excess -13.2 mmol/L (-2.0-3.0) L 03/14/22 18:00 ABG Hemoglobin 10.6 gm/dl (14.0-18.0) L 03/14/22 18:00 ABG Carboxyhemoglobin 2.1 % (0.0-5.0) 03/14/22 18:00 ABG Methemoglobin 0.7 % (0.0-1.5) 03/14/22 18:00 Oxyhemoglobin 77.3 % (95.0-99.0) L 03/14/22 18:00 FiO2 44 % 03/14/22 18:00 Sodium 138 mmol/L (137-145) 03/14/22 04:54 Potassium 5.2 mmol/L (3.6-5.0) H 03/14/22 04:54 Chloride 108.7 mmol/L (98-107) H 03/14/22 04:54 Carbon Dioxide 17 mmol/L (22-30) L 03/14/22 04:54 Anion Gap 18 mmol/L 03/14/22 04:54 BUN 70 mg/dL (9-20) H 03/14/22 04:54 Creatinine 0.8 mg/dL (0.8-1.3) 03/14/22 04:54 Estimated GFR > 60 ml/min 03/14/22 04:54 BUN/Creatinine Ratio 88 % 03/14/22 04:54 Glucose 177 mg/dL (75-100) H 03/14/22 04:54 POC Glucose 113 mg/dL (70-105) H 03/15/22 08:37 Lactic Acid 8.30 mmol/L (0.7-2.0) H* 03/14/22 21:02 Calcium 7.4 mg/dL (8.4-10.2) L 03/14/22 04:54 Total Bilirubin 0.90 mg/dL (0.1-1.2) 03/14/22 04:54 Direct Bilirubin 0.4 mg/dL (0-0.2) H 03/12/22 06:46 Indirect Bilirubin 0.6 mg/dL 03/12/22 06:46 AST 77 units/L (5-40) H 03/14/22 04:54 ALT 23 units/L (7-56) 03/14/22 04:54 Alkaline Phosphatase 326 units/L (35-129) H 03/14/22 04:54 Total Protein 4.8 g/dL (6.3-8.2) L 03/14/22 04:54 Albumin 2.3 g/dL (3.9-5) L 03/14/22 04:54 Albumin/Globulin Ratio 0.9 % 03/14/22 04:54 Procalcitonin 4.78 ng/mL (<0.15) 03/13/22 12:08 Urine Color Yellow (Yellow) 03/12/22 18:30 Urine Turbidity Clear (Clear) 03/12/22 18:30 Urine pH 5.0 (5.0-7.0) 03/12/22 18:30 Ur Specific Lyman 1.035 (1.003-1.030) H 03/12/22 18:30 Urine Protein 30 mg/dl mg/dL (Negative) 03/12/22 18:30 Urine Glucose (UA) Negative mg/dL (Negative) 03/12/22 18:30 Urine Ketones Negative mg/dL (Negative) 03/12/22 18:30 Urine Blood Negative (Negative) 03/12/22 18:30 Urine Nitrite Negative (Negative) 03/12/22 18:30 Urine Bilirubin Negative (Negative) 03/12/22 18:30 Urine Urobilinogen 0.2 mg/dL (<2.0) 03/12/22 18:30 Ur Leukocyte Esterase Negative (Negative) 03/12/22 18:30 Urine WBC (Auto) 6.0 /HPF (0.0-6.0) 03/12/22 18:30 Urine RBC (Auto) 3.0 /HPF (0.0-6.0) 03/12/22 18:30 U Epithel Cells (Auto) < 1.0 /HPF (0-13.0) 03/12/22 18:30 Urine Mucus Few /HPF 03/12/22 18:30 Urine Sperm 1+ /HPF (AUTOMATIC CORN GRINDER OPERATOR) 03/12/22 18:30 Nasal Screen MRSA (PCR) Negative (Negative) 03/12/22 17:56 Blood Type O POSITIVE 03/12/22 08:21 Antibody Screen Negative 03/12/22 08:21 Crossmatch See Detail 03/12/22 08:21 Microbiology: Microbiology 03/14/22 16:51 Peripheral/Venous Blood Culture - Preliminary Culture in Progress 03/14/22 15:56 Peripheral/Venous Blood Culture - Preliminary Culture in Progress Ann/IV: Voiding Method Condom Catheter Active Medications - Current Medications Current Medications: Generic Name Dose Route Start Last Admin Trade Name Freq PRN Reason Stop Dose Admin Acetaminophen 650 mg 03/12/22 12:22 Acetaminophen 325 Mg Tab PO Q6H PRN Pain, Mild (1-3) Albuterol 2.5 mg 03/12/22 12:22 Albuterol 2.5 Mg/3 Ml Nebu IH Q3HRT PRN Shortness Of Breath Dextrose 50 ml 03/13/22 13:22 03/13/22 13:25 Dextrose 50% In Water (25gm) 50 Ml Syringe IV 50 ml Q30MIN PRN Administration Hypoglycemia Protocol Famotidine 20 mg 03/14/22 10:00 03/15/22 09:20 Famotidine 20 Mg Tab PO 20 mg QDAY RJ Administration Hydromorphone HCl 0.25 mg 03/12/22 12:22 03/14/22 21:46 Hydromorphone 0.5 Mg/0.5 Ml Inj IV 0.25 mg Q4H PRN Administration Pain, Moderate (4-6) Sodium Chloride 500 mls @ 0 mls/hr 03/12/22 12:26 Nacl 0.9% 500 Ml IV ONCE RJ As Directed Cefepime HCl 2 gm in 100 mls @ 200 mls/hr 03/14/22 12:00 03/15/22 09:19 Cefepime/Ns 2 Gm/100 Ml IV 200 mls/hr Q12HR RJ Administration Protocol Vancomycin HCl 500 mg/ Sodium 110 mls @ 73.333 mls/hr 03/15/22 00:00 03/15/22 00:32 Chloride IV 73.333 mls/hr Q12H RJ Administration Sodium Bicarbonate 150 meq/ 1,150 mls @ 100 mls/hr 03/14/22 19:00 03/15/22 09:19 Dextrose IV 100 mls/hr DIRECT RJ Administration Methylprednisolone Sodium Succinate 50 mg 03/14/22 14:00 03/15/22 02:10 Methylprednisolone Sod Succinate 125 Mg/2 Ml Inj IV 50 mg Q12H RJ Administration Metronidazole 500 mg 03/14/22 14:00 03/15/22 06:10 Metronidazole 500 Mg Tab PO 500 mg Q8HR RJ Administration Protocol Morphine Sulfate 2 mg 03/12/22 12:22 03/14/22 03:43 Morphine 4 Mg/1 Ml Inj IV 2 mg Q8H PRN Administration Pain , Severe (7-10) Oxycodone/Acetaminophen 1 tab 03/12/22 12:22 Oxycodone /Acetaminophen 5-325mg Tab PO Q6H PRN Pain, Moderate (4-6) Sodium Chloride 10 ml 03/12/22 22:00 03/15/22 09:20 Sodium Chloride 0.9% 10 Ml Flush Syringe IV 10 ml BID RJ Administration Sodium Chloride 10 ml 03/12/22 12:22 Sodium Chloride 0.9% 10 Ml Flush Syringe IV PRN PRN LINE FLUSH Nutrition/Malnutrition Assess - Dietary Evaluation Nutrition/Malnutrition Findings: Nutrition Notes Start: 03/13/22 10:05 Freq: Status: Active Protocol: Document 03/13/22 10:05 EULA (Rec: 03/13/22 10:17 MECR [id number]) Nutrition Notes Need for Assessment generated from: MD Order,industrial relations representative,MST Initial or Follow up Assessment Current Diagnosis Decubitus(Pressure Ulcer), Sepsis Other Pertinent Diagnosis UTI, Infected sacral ulcer, Debility, Anemia Current Diet Regular Labs/Tests BUN 72 BG 61 Pertinent Medications Reviewed Height 5 ft 10 in Weight 49.9 kg [place] Body Weight (kg) 75.45 BMI 15.7 Intake Prior to Admission Poor Weight Status Underweight Subjective/Other Information RD consulted for poor oral intake; pt also screened for malnutrition risk, skin risk ( Jose score: 13), and low BMI . Pt from a [facility]. PMHx includes stage 4 malignant neoplasm s/p chemo, malnutrition, vascular dementia and cerebral atherosclerosis. Burn Absent Trauma Absent Skin Integrity/Comment Sacral ulcer Minimum of two criteria Yes Energy Intake (severe) < or equal to 50% Estimated Energy Requirement > or equal to 5 days Body Fat Depletion Moderate depletion (severe) Muscle Mass Moderate Depletion (severe) Reduced Private Household Worker Strength Measurably Reduced (severe) #1 Nutrition Diagnosis Malnutrition Etiology chronic illness, dementia, debility As Evidenced by Signs and Symptoms BMI 15.8, documented poor appetite MEDICAL EXAMINER, subcutaneous fat loss, muscle loss, bilat weak handgrip strength Is patient on ventilator? No Is Patient Ambulatory and/or Out of Bed No [facility] 1524.420 Kcal/Kg value to use for calculation 40 Approximate Energy Requirements Using 1995 kcal/Kg Calculation Used for Recommendations Kcal/kg Additional Notes Pro needs 1.25-1.5g/k-75g /day Fluid needs 1ml/kcal Nutrition Intervention Change Diet Order: Change diet to [facility] soft Add Supplement/Snack (indicate name/kcal Ensure Enlive TID (chocolate) /protein ) Provides kCal: 1,050 Provides Protein (gm) 60 Goal #1 PO intake of meals plus ONS to meet 100% energy and pro needs Goal #2 Wound healing Goal #3 Wt maintenance and/or gain Anticipated Discharge Needs: Continue ONS 2-3 times daily for wt maintenance; MVI with minerals once daily, 500mg Vit C BID for wound healing Follow-Up By: 03/16/22 Additional Comments F/U: intakes (meals/ONS)
[2022-03-15] MEDS: metroNIDAZOLE/NS 500 MG/100 ML 500 MG/100 ML BAG IV SCH ×2 (14:29→23:51)
[2022-03-15 14:53] LABS: Hematocrit 31.7 % (35.5-45.6); Hemoglobin 10.2 gm/dl (11.8-15.2); Mean Corpuscular HGB Conc 32 % (32-34); Mean Corpuscular Volume 92 fl (84-94); Red Blood Count 3.43 M/mm3 (3.65-5.03); Red Cell Distribution Width 19.7 % (13.2-15.2)
[2022-03-15 14:55] LABS: Platelet Count 10 K/mm3 (140-440)
[2022-03-15 15:01] LABS: BUN/Creatinine Ratio 83; Blood Urea Nitrogen 75 mg/dL (9-20); Calcium 7.5 mg/dL (8.4-10.2); Hemolysis Index 4
[2022-03-15] MEDS ORDERED: SODIUM CHLORIDE 0.9% 500 ML 500 ML IV ONE (17:00)
[2022-03-15 17:50] LABS: Total Cells Counted 100
[2022-03-15 17:51] LABS: Basophils % (Manual) 0 % (0.0-1.8); Burr Cells Few; Eosinophils % (Manual) 0 % (0.0-4.3); Large Platelets Few; Myelocytes # (Manual) 0.4 K/mm3; Spherocytes Few
[2022-03-15 17:52] LABS: Platelet Estimate Consistent w Auto
[2022-03-16] MEDS: VANCOMYCIN 500 MG in SODIUM CHLORIDE 0.9% 100 ML IV SCH ×2 (00:56→12:56)
[2022-03-16] MEDS: methylPREDNISolone Sod Succinate 125 MG/2 ML INJ IV SCH ×2 (01:00→14:23)
[2022-03-16 05:51] LABS: Hematocrit 26.5 % (35.5-45.6); Hemoglobin 8.9 gm/dl (11.8-15.2); Mean Corpuscular HGB Conc 34 % (32-34); Mean Corpuscular Volume 92 fl (84-94); Red Blood Count 2.88 M/mm3 (3.65-5.03); Red Cell Distribution Width 19.4 % (13.2-15.2)
[2022-03-16 05:59] LABS: Platelet Count 32 K/mm3 (140-440)
[2022-03-16 06:10] LABS: Alanine Aminotransferase 148 units/L (7-56); Albumin 2.1 g/dL (3.9-5); BUN/Creatinine Ratio 90; Blood Urea Nitrogen 72 mg/dL (9-20); Calcium 7.6 mg/dL (8.4-10.2); Hemolysis Index 4
[2022-03-16] MEDS: metroNIDAZOLE/NS 500 MG/100 ML 500 MG/100 ML BAG IV SCH ×3 (07:14→23:28)
[2022-03-16] MEDS: FAMOTIDINE 20 MG TAB PO SCH (09:47)
[2022-03-16] MEDS: CEFEPIME/NS 2 GM/100 ML 2 GM/100 ML BAG IV SCH ×2 (09:54→21:28)
--- NOTE | 2022-03-16 10:41 | Progress Note ---
Assessment and Plan Cultures: None so far A/P: 71-year-old jail resident with vascular dementia, debility, stage IV lung cancer, reportedly last chemotherapy was 1 month ago, malnutrition, sacral decubitus ulcer [facility] due to lab results revealing severe thrombocytopenia: #Sepsis: Could be secondary to right-sided pneumonia, does have a large pleural effusion on the right side: Parapneumonic effusion versus malignant effusion. Sacral decubitus ulcer does not appear infected. Note the patient also has an indwelling port for chemotherapy, rule out bacteremia. #Anemia, thrombocytopenia: Oncology following #Stage IV lung cancer: On chemotherapy. #Vascular dementia #Protein calorie malnutrition Recs: -noted plans for hospice/comfort care. Once he is transitioned to comfort care, d/c abx ID will sign off. Geovanni Andres MD, FACP, [facility] O: [phone] F: [phone] C: [phone] Subjective Date of service: 03/16/22 Interval history: Afebrile. On BiPAP. Sleepy, can be easily awakened. Objective - Exam Narrative Exam: Physical Exam: Constitutional: drowsy, on BIPAP Head, Ears, Nose: Normocephalic, atraumatic. External ears, nose normal Eyes: Conjunctivae/corneas clear. No icterus. No ptosis. Neck: Supple, no meningeal signs Cardiovascular: S1, S2 + Respiratory: AE fair bilaterally GI: Soft, non-tender; bowel sounds normal. No peritoneal signs Musculoskeletal: No pedal edema, no cyanosis. Cachexia Skin: Sacral decubitus ulcer with dressing Hem/Lymphatic: No palpable cervical or supraclavicular nodes. No lymphangitis Psych: drowsy Neurological: drowsy, easily awakened, on BiPAP. exam limited - Constitutional Vitals: Vital Signs Temp Pulse Resp BP Pulse Ox 98.8 F 98 H 16 96/56 94 03/16/22 08:00 03/16/22 09:00 03/16/22 09:04 03/16/22 09:00 03/16/22 09:00 Temperature -Last 24 Hours Temperature 98.8 F Temperature 97.0 F Temperature 97.0 F Temperature 97.5 F Temperature 97.5 F Temperature 96.5 F Temperature 97.3 F Temperature 97.3 F Temperature 97.2 F Temperature 97.0 F - Labs CBC & Chem 7: 03/16/22 05:06 03/16/22 04:00 Labs: Abnormal lab results 03/15/22 03/15/22 03/15/22 Range/Units 13:17 16:32 Unknown WBC 21.2 H (4.5-11.0) K/mm3 RBC 3.43 L (3.65-5.03) M/mm3 Hgb 10.2 L (11.8-15.2) gm/dl Hct 31.7 L (35.5-45.6) % RDW 19.7 H (13.2-15.2) % Plt Count 10 L* (140-440) K/mm3 Seg Neuts % (Manual) 91.0 H (40.0-70.0) % Lymphocytes % (Manual) 4.0 L (13.4-35.0) % Seg Neutrophils # Man 19.3 H (1.8-7.7) K/mm3 Lymphocytes # (Manual) 0.8 L (1.2-5.4) K/mm3 Sodium (137-145) mmol/L BUN (9-20) mg/dL Glucose (75-100) mg/dL POC Glucose 68 L 144 H (70-105) mg/dL Calcium (8.4-10.2) mg/dL AST (5-40) units/L ALT (7-56) units/L Alkaline Phosphatase (35-129) units/L Total Protein (6.3-8.2) g/dL Albumin (3.9-5) g/dL 03/15/22 03/16/22 03/16/22 Range/Units Unknown 04:00 05:06 WBC 26.6 H (4.5-11.0) K/mm3 RBC 2.88 L (3.65-5.03) M/mm3 Hgb 8.9 L (11.8-15.2) gm/dl Hct 26.5 L (35.5-45.6) % RDW 19.4 H (13.2-15.2) % Plt Count 32 L D (140-440) K/mm3 Seg Neuts % (Manual) (40.0-70.0) % Lymphocytes % (Manual) (13.4-35.0) % Seg Neutrophils # Man (1.8-7.7) K/mm3 Lymphocytes # (Manual) (1.2-5.4) K/mm3 Sodium 146 H (137-145) mmol/L BUN 75 H 72 H (9-20) mg/dL Glucose 149 H 157 H (75-100) mg/dL POC Glucose (70-105) mg/dL Calcium 7.5 L 7.6 L (8.4-10.2) mg/dL AST 551 H (5-40) units/L ALT 148 H (7-56) units/L Alkaline Phosphatase 453 H (35-129) units/L Total Protein 4.5 L (6.3-8.2) g/dL Albumin 2.1 L (3.9-5) g/dL
[2022-03-16] MEDS: DEXTROSE 50% IN WATER (25GM) 50 ML SYRINGE IV PRN (11:44)
[2022-03-16] MEDS ORDERED: ALBUMIN HUMAN 25% (25 GM/100 ML) INJ IV NR (15:41)
--- NOTE | 2022-03-16 17:56 | Progress Note ---
Assessment and Plan Assessment and plan: This is a 71-year-old male with known past medical history of stage 4 Lung CA s/p Chemo, vascular dementia, cerebral atherosclerosis, malnutrition, debility, sacral decubitus ulcer admitted for sepsis, anemia, and severe thrombocytopenia. Hospital Course to Date: 03/13: S/p 3units of PRBCs and 2units of plt. Platelets counts are still low this am, last unit of plt pending. Patient remains mentally intact, stable on 2L NC. No s/s of any active bleeding, stool occult negative. Hematology consulted for further recs. Patient is also hypotensive this am. Remains afebrile, however with worsen leukocytosis, UA and blood cultures pending. BP improved post IVF bolus and continuous IVF ordered. Will check a procal, continue current empiric IV Abx for now. Consider ID consult if leukocytosis worsen or if patient is febrile. Hypoglycemia also noted from this am labs, treated per hypoglycemic protocol. Encourage PO intake, BG check ACHS, commercial sales representative/nutrition consulted. PT/OT also ordered. Records requested from [facility]. 03/14: Patient seen and examined remains hypotensive. Worsening leukocytosis. Consulted ID for possible underlying sepsis. Patient does have a right-sided pn eumonia with large pleural effusion. While this could be malignant effusion it could also be infected parapneumonic effusion. On my discussion with ID we also considered if patient possibly got new nueclast which can stimulate white cells. In any case antibiotics changes per ID. We will consider right-sided thoracentesis once thrombocytopenia is improved. Considering hematology recommendation and refractory plt, will start on steroids. 03/15: Patient seen and examined, unfortunately continues with Acute Respiratory distress, on Continuous BiPAP. labs returned, platelet down to 10, will give single donnor platelet. Poor prognosis. PER MY COLLEAGUE YESTERDAY: Patient family meeting conducted today with medical decision makers. Patient family members informed of patient's poor prognosis. Patient found to have a malignant pleural effusion with stage IV metastatic lung cancer. Patient found to have a prognosis of 6 months or less of the illness runs its expected course. Patient family acknowledges poor prognosis. Patient family elects to make patient DNR and to initiate comfort care. Patient family wants to initiate hospice care upon [facility]. Advanced care planning conducted. +30 minutes. Patient family acknowledged understanding and agreem ent with care plan. 03/16: Patient seen and examined, awaiting Therapeutic thoracentesis. Patient is planned for hospice transfer tomorrow as family wants Comfort care only at this time. Assessment and Plan #Sepsis #Probably UTI #Sacral Decubitus Ulcer(POA) - Resides at a nursing and per patient with multiple hospitalization since april, - With worsen leukocytosis, now hypotensive with worsen lactic acidosis. Remains afebrile - UA, blood cultures, MRSA pending - Patient also presented with stage 2 sacral wound. Wound appears clean, no indication for any infection - Procal ordered - Continue current empiric IV Abx - Continue IVF hydration - Trend Lactic acid - F/U on cultures - Daily CBC monitor - Consider ID consult if febrile or/and if leukocytosis persists - Frquent repositioning and wound care per nursing staffs - Wound care also consulted #Right-sided large pleural effusion #normocytic Anemia #Thrombocytopenia - Presented with low H&H and low platelets - Probably due chemotherapy vs sepsis - Per patient last chemo treatment was a month ago at [facility] and the dosage was too strong for him at the time. - s/p 3units of PRBCs and 2units of platelets - No s/s of any active bleeding - Stool occult negative - Plt still low this am, additional 1unit of plt ordered - Continue sepsis w/up and IV abx - Hematology consulted for further rec - Transfuse for Hgb less than 7 and plt less than 20 - Records requested from [facility] #Hypotension - probably related to sepsis - BP improved post IVF bolus - Continue sepsis w/up and current empiric IV Abx - Continue rehydration with cont. IVF - Continue blood pressure monitor per protocol - Maintain MAP above 65 #Hypoglycemia - Low BG noted from this am labs - Probably due to poor PO intake - BG treated per [id number] protocol - Check BG ACHS - Avoid hypoglycemia - Continue hypoglycemic protocol #Stage 4 Lung Cancer s/p Chemo - Per patient last chemo treatment was a month ago at [facility] and the dosage was too strong for him at the time. - Currently stable on 2L NC - Continue O2 supplementation wean as tolerated - Continue SPO2 monitoring for SPO2 goal above 92% - Follow up outpatient with Oncology for further management #Moderate Protein-Calorie Malnutrition - Encourage PO intake - Increase protein intake, dietary supplementation. - Folded Towel Machine Operator/Nutrition consulted #Vascular Dementia #Debility - Mentation improved, fully AAO today - Verbal prompting, verbal redirection - Avoid benzodiazepine to reduce the possibility of delirium - PRN Analgesia for pain control - Maintenance of sleep-wake cycle - PT/OT consulted #GI/DVT Prophylaxis - PPI- Pepcid - SCDs bilateral lower extremities while in bed #Advance Care Planning - Disease education data, care plan, diagnoses, and prognosis were discussed with patient at the bedside. Patient is a FULL code. Patient acknowledged understanding and agreed with current care plan. Prognosis is guarded The high probability of a clinically significant, sudden or life threatening deterioration of the [multiple] system(s) required my full and direct attention, intervention and personal management. The aggregate critical care time was [60] minutes. This time is in addition to time spent performing reported procedures but includes the following: [x] Data Review and interpretation [x] Patient assessment and monitoring of vital signs [x] Documentation [x] Medication orders and management Disposition Plan: IMCU Total Time Spent with Patient (Minutes): 60 History Interval history: Patient seen and examined at the bedside. Patient remains very lethargic, off and on BiPAP, awaiting Thoracentensis Hospitalist Physical - Physical exam Narrative exam: General appearance: Present: cachectic. on BIPAP, mild to moderate respiratory distress - EENT Eyes: Present: PERRL, EOM intact ENT: hearing intact - Neck Neck: Present: normal ROM - Respiratory Respiratory effort: normal Respiratory: bilateral: diminished - Cardiovascular Rhythm: regular Heart Sounds: Present: S1 & S2 - Extremities Extremities: no ischemia, pulses intact, pulses symmetrical Peripheral Pulses: within normal limits - Abdominal General gastrointestinal: soft, non-distended, normal bowel sounds - Integumentary Integumentary: Present: warm, dry - Psychiatric Psychiatric: unable to assess - Neurologic Neurologic: CNII-XII intact, moves all extremities, other (Generalized weakness) - Allied Health Allied health notes reviewed: nursing, case management - Constitutional Vitals: Temp Pulse Resp BP Pulse Ox 97 F L 114 H 23 88/54 90 03/16/22 16:00 03/16/22 17:31 03/16/22 17:31 03/16/22 17:00 03/16/22 16:00 General appearance: Present: no acute distress, cachectic Results - Labs CBC & Chem 7: 03/16/22 05:06 03/16/22 04:00 Labs: Laboratory Last Values WBC 26.6 K/mm3 (4.5-11.0) H 03/16/22 05:06 RBC 2.88 M/mm3 (3.65-5.03) L 03/16/22 05:06 Hgb 8.9 gm/dl (11.8-15.2) L 03/16/22 05:06 Hct 26.5 % (35.5-45.6) L 03/16/22 05:06 MCV 92 fl (84-94) 03/16/22 05:06 MCH 31 pg (28-32) 03/16/22 05:06 MCHC 34 % (32-34) 03/16/22 05:06 RDW 19.4 % (13.2-15.2) H 03/16/22 05:06 Plt Count 32 K/mm3 (140-440) L D 03/16/22 05:06 Add Manual Diff Complete 03/15/22 Unknown Total Counted 100 03/15/22 Unknown Seg Neutrophils % Rehab Manager 03/15/22 Unknown Seg Neuts % (Manual) 91.0 % (40.0-70.0) H 03/15/22 Unknown Band Neutrophils % 0 % 03/15/22 Unknown Lymphocytes % (Manual) 4.0 % (13.4-35.0) L 03/15/22 Unknown Reactive Lymphs % (Man) 0 % 03/15/22 Unknown Monocytes % (Manual) 3.0 % (0.0-7.3) 03/15/22 Unknown Eosinophils % (Manual) 0 % (0.0-4.3) 03/15/22 Unknown Basophils % (Manual) 0 % (0.0-1.8) 03/15/22 Unknown Metamyelocytes % 0 % 03/15/22 Unknown Myelocytes % 2.0 % 03/15/22 Unknown Promyelocytes % 0 % 03/15/22 Unknown Blast Cells % 0 % 03/15/22 Unknown Nucleated RBC % Not Reportable 03/15/22 Unknown Seg Neutrophils # Man 19.3 K/mm3 (1.8-7.7) H 03/15/22 Unknown Band Neutrophils # 0.0 K/mm3 03/15/22 Unknown Lymphocytes # (Manual) 0.8 K/mm3 (1.2-5.4) L 03/15/22 Unknown Abs React Lymphs (Man) 0.0 K/mm3 03/15/22 Unknown Monocytes # (Manual) 0.6 K/mm3 (0.0-0.8) 03/15/22 Unknown Eosinophils # (Manual) 0.0 K/mm3 (0.0-0.4) 03/15/22 Unknown Basophils # (Manual) 0.0 K/mm3 (0.0-0.1) 03/15/22 Unknown Metamyelocytes # 0.0 K/mm3 03/15/22 Unknown Myelocytes # 0.4 K/mm3 03/15/22 Unknown Promyelocytes # 0.0 K/mm3 03/15/22 Unknown Blast Cells # 0.0 K/mm3 03/15/22 Unknown WBC Morphology Not Reportable 03/15/22 Unknown Hypersegmented Neuts Not Reportable 03/15/22 Unknown Hyposegmented Neuts Not Reportable 03/15/22 Unknown Hypogranular Neuts Not Reportable 03/15/22 Unknown Smudge Cells Not Reportable 03/15/22 Unknown Toxic Granulation Not Reportable 03/15/22 Unknown Toxic Vacuolation Not Reportable 03/15/22 Unknown Dohle Bodies Not Reportable 03/15/22 Unknown Pelger-Huet Anomaly Not Reportable 03/15/22 Unknown Blu Rods Not Reportable 03/15/22 Unknown Platelet Estimate Consistent w auto 03/15/22 Unknown Clumped Platelets Not Reportable 03/15/22 Unknown Plt Clumps, EDTA Not Reportable 03/15/22 Unknown Large Platelets Few 03/15/22 Unknown Giant Platelets Not Reportable 03/15/22 Unknown Platelet Satelliting Not Reportable 03/15/22 Unknown Plt Morphology Comment Not Reportable 03/15/22 Unknown RBC Morphology Not Reportable 03/15/22 Unknown Dimorphic RBCs Not Reportable 03/15/22 Unknown Polychromasia Few 03/15/22 Unknown Hypochromasia Not Reportable 03/15/22 Unknown Poikilocytosis Not Reportable 03/15/22 Unknown Anisocytosis Not Reportable 03/15/22 Unknown Microcytosis Not Reportable 03/15/22 Unknown Macrocytosis Not Reportable 03/15/22 Unknown Spherocytes Few 03/15/22 Unknown Pappenheimer Bodies Not Reportable 03/15/22 Unknown Sickle Cells Not Reportable 03/15/22 Unknown Target Cells Not Reportable 03/15/22 Unknown Tear Drop Cells Not Reportable 03/15/22 Unknown Ovalocytes Not Reportable 03/15/22 Unknown Helmet Cells Not Reportable 03/15/22 Unknown [place] Bodies Not Reportable 03/15/22 Unknown Sullivan Rings Not Reportable 03/15/22 Unknown [place] Cells Few 03/15/22 Unknown Bite Cells Not Reportable 03/15/22 Unknown Crenated Cell Not Reportable 03/15/22 Unknown Elliptocytes Not Reportable 03/15/22 Unknown Acanthocytes (Spur) Few 03/15/22 Unknown Rouleaux Not Reportable 03/15/22 Unknown Hemoglobin C Crystals Not Reportable 03/15/22 Unknown Schistocytes Not Reportable 03/15/22 Unknown Malaria parasites Not Reportable 03/15/22 Unknown River Bodies Not Reportable 03/15/22 Unknown Hem Pathologist Commnt No 03/15/22 Unknown PT 18.2 Sec. (12.2-14.9) H 03/13/22 20:48 INR 1.31 (0.87-1.13) H 03/13/22 20:48 APTT 31.0 Sec. (24.2-36.6) 03/12/22 08:20 Fibrinogen 283 mg/dl (211-480) 03/13/22 20:48 ABG pH 7.108 pH Units (7.350-7.450) L* 03/14/22 18:00 ABG pCO2 51.6 mm Hg 03/14/22 18:00 ABG pO2 60.0 mm Hg (80.0-90.0) L 03/14/22 18:00 ABG HCO3 16.0 mmol/L (20.0-26.0) L 03/14/22 18:00 ABG O2 Saturation 79.5 % (95.0-99.0) L 03/14/22 18:00 ABG O2 Content 11.6 (0.0-44) 03/14/22 18:00 ABG Base Excess -13.2 mmol/L (-2.0-3.0) L 03/14/22 18:00 ABG Hemoglobin 10.6 gm/dl (14.0-18.0) L 03/14/22 18:00 ABG Carboxyhemoglobin 2.1 % (0.0-5.0) 03/14/22 18:00 ABG Methemoglobin 0.7 % (0.0-1.5) 03/14/22 18:00 Oxyhemoglobin 77.3 % (95.0-99.0) L 03/14/22 18:00 FiO2 44 % 03/14/22 18:00 Sodium 146 mmol/L (137-145) H 03/16/22 04:00 Potassium 3.8 mmol/L (3.6-5.0) 03/16/22 04:00 Chloride 105.6 mmol/L (98-107) 03/16/22 04:00 Carbon Dioxide 29 mmol/L (22-30) 03/16/22 04:00 Anion Gap 15 mmol/L 03/16/22 04:00 BUN 72 mg/dL (9-20) H 03/16/22 04:00 Creatinine 0.8 mg/dL (0.8-1.3) 03/16/22 04:00 Estimated GFR > 60 ml/min 03/16/22 04:00 BUN/Creatinine Ratio 90 % 03/16/22 04:00 Glucose 157 mg/dL (75-100) H 03/16/22 04:00 POC Glucose 142 mg/dL (70-105) H 03/16/22 17:37 Lactic Acid 8.30 mmol/L (0.7-2.0) H* 03/14/22 21:02 Calcium 7.6 mg/dL (8.4-10.2) L 03/16/22 04:00 Total Bilirubin 0.90 mg/dL (0.1-1.2) 03/16/22 04:00 Direct Bilirubin 0.4 mg/dL (0-0.2) H 03/12/22 06:46 Indirect Bilirubin 0.6 mg/dL 03/12/22 06:46 AST 551 units/L (5-40) H 03/16/22 04:00 ALT 148 units/L (7-56) H 03/16/22 04:00 Alkaline Phosphatase 453 units/L (35-129) H 03/16/22 04:00 Total Protein 4.5 g/dL (6.3-8.2) L 03/16/22 04:00 Albumin 2.1 g/dL (3.9-5) L 03/16/22 04:00 Albumin/Globulin Ratio 0.9 % 03/16/22 04:00 Procalcitonin 4.78 ng/mL (<0.15) 03/13/22 12:08 Urine Color Yellow (Yellow) 03/12/22 18:30 Urine Turbidity Clear (Clear) 03/12/22 18:30 Urine pH 5.0 (5.0-7.0) 03/12/22 18:30 Ur Specific [place] 1.035 (1.003-1.030) H 03/12/22 18:30 Urine Protein 30 mg/dl mg/dL (Negative) 03/12/22 18:30 Urine Glucose (UA) Negative mg/dL (Negative) 03/12/22 18:30 Urine Ketones Negative mg/dL (Negative) 03/12/22 18:30 Urine Blood Negative (Negative) 03/12/22 18:30 Urine Nitrite Negative (Negative) 03/12/22 18:30 Urine Bilirubin Negative (Negative) 03/12/22 18:30 Urine Urobilinogen 0.2 mg/dL (<2.0) 03/12/22 18:30 Ur Leukocyte Esterase Negative (Negative) 03/12/22 18:30 Urine WBC (Auto) 6.0 /HPF (0.0-6.0) 03/12/22 18:30 Urine RBC (Auto) 3.0 /HPF (0.0-6.0) 03/12/22 18:30 U Epithel Cells (Auto) < 1.0 /HPF (0-13.0) 03/12/22 18:30 Urine Mucus Few /HPF 03/12/22 18:30 Urine Sperm 1+ /HPF (RETAIL SOLAR ADVISOR) 03/12/22 18:30 Nasal Screen MRSA (PCR) Negative (Negative) 03/12/22 17:56 Blood Type O POSITIVE 03/15/22 15:54 Antibody Screen Negative 03/12/22 08:21 Crossmatch See Detail 03/12/22 08:21 Microbiology: Microbiology 03/13/22 18:30 Urine,Clean Catch Urine Culture - Final 03/14/22 16:51 Peripheral/Venous Blood Culture - Preliminary NO GROWTH AFTER 24 HOURS 03/14/22 15:56 Peripheral/Venous Blood Culture - Preliminary NO GROWTH AFTER 24 HOURS Ann/IV: Voiding Method Condom Catheter Active Medications - Current Medications Current Medications: Generic Name Dose Route Start Last Admin Trade Name Freq PRN Reason Stop Dose Admin Acetaminophen 650 mg 03/12/22 12:22 Acetaminophen 325 Mg Tab PO Q6H PRN Pain, Mild (1-3) Albumin Human 25 gm 03/17/22 06:00 Albumin Human 25% (25 Gm/100 Ml) Inj IV ONCE RJ Albuterol 2.5 mg 03/12/22 12:22 Albuterol 2.5 Mg/3 Ml Nebu IH Q3HRT PRN Shortness Of Breath Dextrose 50 ml 03/13/22 13:22 03/16/22 11:44 Dextrose 50% In Water (25gm) 50 Ml Syringe IV 50 ml Q30MIN PRN Administration Hypoglycemia Protocol Famotidine 20 mg 03/14/22 10:00 03/16/22 09:47 Famotidine 20 Mg Tab PO Not Given QDAY RJ Hydromorphone HCl 0.25 mg 03/12/22 12:22 03/14/22 21:46 Hydromorphone 0.5 Mg/0.5 Ml Inj IV 0.25 mg Q4H PRN Administration Pain, Moderate (4-6) Sodium Chloride 500 mls @ 0 mls/hr 03/12/22 12:26 03/15/22 21:00 Nacl 0.9% 500 Ml IV 42 mls/hr ONCE RJ Administration As Directed Cefepime HCl 2 gm in 100 mls @ 200 mls/hr 03/14/22 12:00 03/16/22 10:24 Cefepime/Ns 2 Gm/100 Ml IV Infused Q12HR RJ Infusion Protocol Vancomycin HCl 500 mg/ Sodium 110 mls @ 73.333 mls/hr 03/15/22 00:00 03/16/22 14:27 Chloride IV Infused Q12H RJ Infusion Metronidazole 500 mg in 100 mls @ 100 mls/hr 03/15/22 15:00 03/16/22 15:23 Flagyl 500 Mg/100 Ml IV Infused Q8H RJ Infusion Protocol Methylprednisolone Sodium Succinate 50 mg 03/14/22 14:00 03/16/22 14:23 Methylprednisolone Sod Succinate 125 Mg/2 Ml Inj IV 50 mg Q12H RJ Administration Morphine Sulfate 2 mg 03/12/22 12:22 03/14/22 03:43 Morphine 4 Mg/1 Ml Inj IV 2 mg Q8H PRN Administration Pain , Severe (7-10) Oxycodone/Acetaminophen 1 tab 03/12/22 12:22 Oxycodone /Acetaminophen 5-325mg Tab PO Q6H PRN Pain, Moderate (4-6) Sodium Chloride 10 ml 03/12/22 22:00 03/16/22 09:55 Sodium Chloride 0.9% 10 Ml Flush Syringe IV 10 ml BID RJ Administration Sodium Chloride 10 ml 03/12/22 12:22 Sodium Chloride 0.9% 10 Ml Flush Syringe IV PRN PRN LINE FLUSH Nutrition/Malnutrition Assess - Dietary Evaluation Nutrition/Malnutrition Findings: Nutrition Notes Start: 03/13/22 10:05 Freq: Status: Active Protocol: Document 03/16/22 15:19 ELKE (Rec: 03/16/22 15:41 ELKE [id number]) Nutrition Notes Initial or Follow up Brief Note Current Diagnosis Decubitus(Pressure Ulcer), Sepsis,Malnutrition Other Pertinent Diagnosis Thrombocytopenia, Anemia, Lung Cancer, Vascular Dementia, .. . Current Diet Mechanical Soft Diet+D Suppl ( since L 03/13). Height 5 ft 10 in Weight 49.9 kg [place] Body Weight (kg) 75.45 BMI 15.7 Weight change and time frame No body weight change reported in 3 days. Weight Status Underweight Subjective/Other Information RD consult for routine F/U on dietary advancement. Diet continues as prescribed, No reports vailable on Pt'as PO intake of meals at the time , will assess at F/U. Pt is on NIV/Bi-PaP+, O2 saturation @ 94%, according to Physical Assessment History notes. Family agreed to sign DNR status and to discharge to SNF when clinically stable, according to Progress notes. Percent of energy/protein needs met: Prescribed Mechanical Soft Diet provides for energy/ protein needs (2,048 Kcal/97 g ) during LOS; additionally, Dietary Supplements will compensate for possible poor or insufficient PO intake of meals with 1,050 Kcal and 60 g of protein. #1 Nutrition Diagnosis Malnutrition Diagnosis Progress(for reassessment Continues documentation) Is patient on ventilator? No Is Patient Ambulatory and/or Out of Bed No REE-([facility]-confined to bed) 1524.420 Kcal/Kg value to use for calculation 41 Approximate Energy Requirements Using 2046 kcal/Kg Calculation Used for Recommendations Kcal/kg Additional Notes Protein: 1.25-1.5 g/Kg ABW; 62 -75 g/day. Fluids: 1 ml/Kcal, or as per MD. Nutrition Intervention Change Diet Order: Continue Mechanical Soft Diet as tolerated. Add Supplement/Snack (indicate name/kcal Continue 8 fl oz Ensure enlive /protein ) ; TID. Provides kCal: 1,050 Provides Protein (gm) 60 Goal #1 Compensate, through dietary supplementation, for possible poor or insufficient PO intake of meals during LOS. Goal #2 Facilitate PO intake of meals with elemental, textural, or mechanical modification during LOS. Follow-Up By: 03/23/22 Additional Comments Continue monitoring food tolerance, %PO intake of meals , dietary supplements, and BM.
[2022-03-17] MEDS: VANCOMYCIN 500 MG in SODIUM CHLORIDE 0.9% 100 ML IV SCH (00:57)
[2022-03-17] MEDS: methylPREDNISolone Sod Succinate 125 MG/2 ML INJ IV SCH (02:49)
[2022-03-17] MEDS ORDERED: ALBUMIN HUMAN 25% (25 GM/100 ML) INJ IV SCH (06:00)
[2022-03-17] MEDS: metroNIDAZOLE/NS 500 MG/100 ML 500 MG/100 ML BAG IV SCH (07:14)
[2022-03-17 10:46] VITALS: BP 92/53
--- NOTE | 2022-03-17 11:18 | Procedure Note ---
Date of procedure: 03/17/22 Pre-op diagnosis: right pleural effusion Post-op diagnosis: other (right hemothorax) Procedure: US right thoracentesis Findings: large right pleural fluid collection Anesthesia: local Surgeon: LALA TRIANA Estimated blood loss: none Pathology: list (120cc) Specimen disposition: to lab Condition: stable Disposition: floor
--- NOTE | 2022-03-17 11:24 | Ultrasound Report ---
ULTRASOUND-GUIDED THORACENTESIS HISTORY: therapeutic and diagnostic. Right pleural effusion COMPARISON: AP chest performed 03/12/2022 PROCEDURE: The risks (including but not limited to bleeding, infection, and pneumothorax) and benefi ts were explained to the patient and informed consent was obtained. A time out procedure was perform ed. Ultrasound was used to evaluate the right pleural effusion and locate the optimal site for needle ent ry. Once the skin was marked, the procedure site was prepped and draped in the usual sterile fashion and lidocaine was used for local anesthesia. A 5-[place] thoracentesis catheter was placed. The pat ient was monitored closely throughout the procedure, and a total of 3100 mL of bloody fluid was aspir ated. Samples were sent to the lab for further evaluation per the primary clinicians orders. The patient tolerated the procedure well with no complications. A post-procedure chest x-ray was imm ediately ordered. IMPRESSION: Successful thoracentesis as above with a total of 8100 mL of bloody fluid aspirated. Signer Name: Klaus Muro Jr, MD Signed: 03/17/2022 11:20 AM Workstation Name: [id number]
--- NOTE | 2022-03-17 12:18 | Death Summary ---
Summary - Providers Date of service: 03/17/22 Consults: 03/12/22 16:05 Consult to Wound/ET Nurse [CONS] Routine Reason For Exam: wound eval 03/13/22 12:29 Consult to Physician [CONS] Routine Comment: spoke to dr. mayers/gagandeep Consulting Provider: ASHU MAYERS Physician Instructions: Reason For Exam: Thrombocytopenia- H/o Lung CA 03/13/22 13:22 Consult to Dietitian/Nutrition [CONS] Routine Physician Instructions: Reason For Exam: Reason for Consult: Poor oral intake 03/13/22 13:51 Occupational Therapy Evaluate and Treat [CONS] Routine Comment: Reason For Exam: Debility Physical Therapy Evaluation and Treat [CONS] Routine Comment: Reason For Exam: Debility 03/14/22 07:36 Consult to Physician [CONS] Routine Comment: noted/ bravo Consulting Provider: JAKE ENCINAS Physician Instructions: Reason For Exam: sepsis Attending: FRAN ACUNA MD - summary Date of admission: 03/12/22 12:22 Date of : 03/17/22 - Final diagnosis (1) Cardiac arrest Note: Final diagnosis: Assessment and plan: This is a 71-year-old male with known past medical history of stage 4 Lung CA s/p Chemo, vascular dementia, cerebral atherosclerosis, malnutrition, debility, sacral decubitus ulcer admitted for sepsis, anemia, and severe thrombocytopenia. Hospital Course to Date: 03/13: S/p 3units of PRBCs and 2units of plt. Platelets counts are still low this am, last unit of plt pending. Patient remains mentally intact, stable on 2L NC. No s/s of any active bleeding, stool occult negative. Hematology consulted for further recs. Patient is also hypotensive this am. Remains afebrile, however with worsen leukocytosis, UA and blood cultures pending. BP improved post IVF bolus and continuous IVF ordered. Will check a procal, continue current empiric IV Abx for now. Consider ID consult if leukocytosis worsen or if patient is febrile. Hypoglycemia also noted from this am labs, treated per hypoglycemic protocol. Encourage PO intake, BG check ACHS, smooth plater/nutrition consulted. PT/OT also ordered. Records requested from [facility]. 03/14: Patient seen and examined remains hypotensive. Worsening leukocytosis. Consulted ID for possible underlying sepsis. Patient does have a right-sided pneumonia with large pleural effusion. While this could be malignant effusion it could also be infected parapneumonic effusion. On my discussion with ID we also considered if patient possibly got new nueclast which can stimulate white cells. In any case antibiotics changes per ID. We will consider right-sided thoracentesis once thrombocytopenia is improved. Considering hematology recommendation and refractory plt, will start on steroids. 03/15: Patient seen and examined, unfortunately continues with Acute Respiratory distress, on Continuous BiPAP. labs returned, platelet down to 10, will give single donnor platelet. Poor prognosis. PER MY [employer] YESTERDAY: Patient family meeting conducted today with medical decision makers. Patient family members informed of patient's poor prognosis. Patient found to have a malignant pleural effusion with stage IV metastatic lung cancer. Patient found to have a prognosis of 6 months or less of the illness runs its expected course. Patient family acknowledges poor prognosis. Patient family elects to make patient DNR and to initiate comfort care. Patient family wants to initiate hospice care upon discharge to alf facility. Advanced care planning conducted. +30 minutes. Patient family acknowledged understanding and agreement with care plan. 03/16: Patient underwent therapeutic thoracentesis this AM. Plan was for him to leave at 1 PM today to SNF with hospice following along. Per RN and RT who were present in the room patient was noted to have no pulse and not responding to stimuli. It was coincidentally present in the ICU at this time and was asked to evaluate the patient. Called to see patient for unresponsiveness. On exam the patient did not respond to verbal or physical stimuli. Absent heart and breath sounds on auscultation. Absent peripheral pulses. Pupils are fixed and dilated. Patient pronounced at 1100. Attempted to reach next of kin however no answer. Voicemail was left. Will attempt to call again. Assessment and Plan #Sepsis #Probably UTI #Sacral Decubitus Ulcer(POA) - Resides at a nursing and per patient with multiple hospitalization since april, - With worsen leukocytosis, now hypotensive with worsen lactic acidosis. Remains afebrile - UA, blood cultures, MRSA pending - Patient also presented with stage 2 sacral wound. Wound appears clean, no indication for any infection - Procal ordered - Continue current empiric IV Abx - Continue IVF hydration - Trend Lactic acid - F/U on cultures - Daily CBC monitor - Consider ID consult if febrile or/and if leukocytosis persists - Frquent repositioning and wound care per nursing staffs - Wound care also consulted #Right-sided large pleural effusion #normocytic Anemia #Thrombocytopenia - Presented with low H&H and low platelets - Probably due chemotherapy vs sepsis - Per patient last chemo treatment was a month ago at [facility] and the dosage was too strong for him at the time. - s/p 3units of PRBCs and 2units of platelets - No s/s of any active bleeding - Stool occult negative - Plt still low this am, additional 1unit of plt ordered - Continue sepsis w/up and IV abx - Hematology consulted for further rec - Transfuse for Hgb less than 7 and plt less than 20 - Records requested from [facility] #Hypotension - probably related to sepsis - BP improved post IVF bolus - Continue sepsis w/up and current empiric IV Abx - Continue rehydration with cont. IVF - Continue blood pressure monitor per protocol - Maintain MAP above 65 #Hypoglycemia - Low BG noted from this am labs - Probably due to poor PO intake - BG treated per [id number] protocol - Check BG ACHS - Avoid hypoglycemia - Continue hypoglycemic protocol #Stage 4 Lung Cancer s/p Chemo - Per patient last chemo treatment was a month ago at [facility] and the dosage was too strong for him at the time. - Currently stable on 2L NC - Continue O2 supplementation wean as tolerated - Continue SPO2 monitoring for SPO2 goal above 92% - Follow up outpatient with Oncology for further management #Moderate Protein-Calorie Malnutrition - Encourage PO intake - Increase protein intake, dietary supplementation. - Research Project Coordinator/Nutrition consulted #Vascular Dementia #Debility - Mentation improved, fully AAO today - Verbal prompting, verbal redirection - Avoid benzodiazepine to reduce the possibility of delirium - PRN Analgesia for pain control - Maintenance of sleep-wake cycle - PT/OT consulted #GI/DVT Prophylaxis - PPI- Pepcid - SCDs bilateral lower extremities while in bed #Advance Care Planning - Disease education data, care plan, diagnoses, and prognosis were discussed with patient at the bedside. Patient is a FULL code. Patient acknowledged understanding and agreed with current care plan. (2) Asystole Note: Final diagnosis: (3) Anemia associated with chemotherapy Note: Final diagnosis: (4) Cerebral atherosclerosis Note: Final diagnosis: (5) Debility Note: Final diagnosis: (6) Hyperkalemia Note: Final diagnosis: (7) Hypocalcemia Note: Final diagnosis: (8) Malnutrition Qualifiers: Protein-calorie malnutrition severity: severe Note: Final diagnosis: (9) Sacral decubitus ulcer Note: Final diagnosis: (10) Sepsis Note: Final diagnosis: (11) Thrombocytopenia Note: Final diagnosis: (12) Urinary tract infection Qualifiers: Encounter type: initial encounter Note: Final diagnosis: (13) Stage 4 lung cancer Note: Final diagnosis:
[2022-03-17 19:54] LABS: Total Cells Counted 100 /mm3
== END 2022-03-17 11:00 | DRG 871 ==
LOC: ED 05:27 → IMCU 12:22
PROVIDERS: ADMIT Internal Medicine; ATTEND Internal Medicine
PROC: 30233N1 Transfusion of Nonautologous Red Blood Cells into Peripheral Vein, Percutaneous Approach (ICD-10-PCS; 2022-03-12)
PROC: 30233R1 Transfusion of Nonautologous Platelets into Peripheral Vein, Percutaneous Approach (ICD-10-PCS; principal; 2022-03-13)
PROC: 4A033R1 Measurement of Arterial Saturation, Peripheral, Percutaneous Approach (ICD-10-PCS; 2022-03-14)
PROC: 5A09457 Assistance with Respiratory Ventilation, 24-96 Consecutive Hours, Continuous Positive Airway Pressure (ICD-10-PCS; 2022-03-14)
PROC: 0W993ZX Drainage of Right Pleural Cavity, Percutaneous Approach, Diagnostic (ICD-10-PCS; 2022-03-17)
DX: A41.9 Sepsis, unspecified organism (principal); E43 Unspecified severe protein-calorie malnutrition; J90 Pleural effusion, not elsewhere classified; N39.0 Urinary tract infection, site not specified; D68.9 Coagulation defect, unspecified; C34.90 Malignant neoplasm of unspecified part of unspecified bronchus or lung; D69.3 Immune thrombocytopenic purpura; Z68.1 Body mass index [BMI] 19.9 or less, adult; Z20.822 Contact with and (suspected) exposure to COVID-19; Z66 Do not resuscitate; D64.81 Anemia due to antineoplastic chemotherapy; T45.1X5A Adverse effect of antineoplastic and immunosuppressive drugs, initial encounter; I46.9 Cardiac arrest, cause unspecified; Y92.89 Other specified places as the place of occurrence of the external cause; E87.5 Hyperkalemia; E83.51 Hypocalcemia; F01.50 Vascular dementia, unspecified severity, without behavioral disturbance, psychotic disturbance, mood disturbance, and anxiety; I67.2 Cerebral atherosclerosis; R53.81 Other malaise; E16.2 Hypoglycemia, unspecified; Z82.49 Family history of ischemic heart disease and other diseases of the circulatory system; Z88.8 Allergy status to other drugs, medicaments and biological substances; L89.152 Pressure ulcer of sacral region, stage 2
CPT/HCPCS: 32555; 36415; 36600; 71045; 80048; 80053; 80076; 81001; 82140; 82270; 82803; 82962; 84145; 85007; 85014; 85018; 85025; 85027; 85049; 85384; 85610; 85730; 86850; 86900; 86901; 86920; 87040; 87086; 87641; 89051; 94660; 94760; G0378; J3490; J7070; J7517; Q9967; J0610; J0692; J0696; J1170; J1815; J1940; J2270; J2930; J3370; J7030; J7040; P9016; P9035; P9047; U0003